=== PATIENT | female | born 1945 | race Caucasian/White ===

== ENCOUNTER 2016-05-31 14:10 | Observation (INO) | payer MEDICARE, OTHER ==
[2016-06-11] MEDS ORDERED: TORAdol 30 mg Injection IV ONE (08:00)
[2016-06-11] MEDS ORDERED: BRIDION 200MG/2ML IV ONE (08:00)
[2016-06-11] MEDS ORDERED: Zemuron 100 MG/10 ML IV ONE (08:00)
[2016-06-11] MEDS ORDERED: Zofran 4 MG/2 ML VIAL IV ONE (08:00)
[2016-06-11] MEDS ORDERED: SUBLIMAZE 100 MCG/2 ML IV ONE (08:00)
[2016-06-11] MEDS ORDERED: Quelicin Fliptop 200 MG/10 ML IV ONE (08:00)
[2016-06-11] MEDS ORDERED: DIPRIVAN 200 MG/20 ML IV ONE (08:00)
[2016-06-11] MEDS ORDERED: Decadron 4 MG INJ IV ONE (08:00)
--- NOTE | 2016-06-11 08:12 | HP ---
DATE OF SURGERY: 06/11/2016 HISTORY OF PRESENT ILLNESS: The patient is a 70 year-old who has a history of ventral hernia mid abdomen. She had cholecystectomy, abdominovaginal sacropexy apparently in the past, total abdominal hysterectomy in the past. She now has ventral hernia and in need of repair. It is increasingly symptomatic. PAST MEDICAL HISTORY: Diabetes. PAST SURGICAL HISTORY: Hysterectomy, abdominovaginal sacropexy, rectocele and bladder repair in the past. Cholecystectomy in the past. MEDICATIONS: Janumet, Actos, Lopid, Reglan, Xanax, aspirin, Neurontin, Lasix, potassium. ALLERGIES: NKDA. FAMILY HISTORY: Diabetes and cancer. SOCIAL HISTORY: No smoking or alcohol abuse. REVIEW OF SYSTEMS: Ten systems reviewed per admission assessment and preadmission questionnaire. No chest pain or palpitations otherwise pertinent for as noted above. PHYSICAL EXAMINATION: GENERAL: No acute distress. HEENT: Sclerae nonicteric. NECK: No JVD. CHEST: Equal excursion, nonlabored breathing. CVS: Regular rate and rhythm. ABDOMEN: Soft, a little bit overweight. She has a mid-abdomen ventral hernia. EXTREMITIES: No significant edema. NEURO: Alert, moving extremities symmetrically. No gross motor deficits noted. IMPRESSION: Incarcerated ventral hernia likely with some preperitoneal or omental fat. Options of open versus laparoscopic were discussed with the patient in detail. Had a long discussion with the patient. Plan on attempting laparoscopic if able to visualize and see the area in question well to proceed safely, will proceed with laparoscopic incarcerated ventral hernia repair with mesh possible open. If there are too many adhesions and not safe to proceed that way then may consider proceeding with open procedure, general risk of bleeding or infection, risk of wound infection or dehiscence, risk of recurrent hernia, risk of aches, pains, burning or numbness possibly senior care or chronic in nature. Risk of adhesion or scar formation or obstruction, risk of postoperative ileus, risk if the mesh became infected likely would need to be removed, general risk of anesthesia, deep venous thrombosis, pulmonary embolism, pneumonia, small risk of bowel injury or issues abdominal injury but not limited to, possibly requiring other procedures, ongoing morbidity. She understands as well as overall risk of hernia recurrence will proceed with laparoscopic possible open incarcerated ventral hernia repair with mesh. She understood all the above but not limited. She understands the remote risk of mesh fracture or failure possibly creating issues with the bowel possibly requiring other procedures but the overall benefit of decreasing hernia recurrence is far greater than remote risk of mesh failure. She understands and agrees to the planned procedure.
[2016-06-11] MEDS ORDERED: Sensorcaine 0.25% 10 ML ONE (09:20)
[2016-06-11] MEDS ORDERED: Lactated Ringers 1,000 ML IV ONE ×2 (09:20→14:42)
[2016-06-11] MEDS ORDERED: CEFAZOLIN 2 GM-D5W BAG** 50 ML IV ONE (11:08)
[2016-06-11] MEDS ORDERED: Pepcid 20 MG VIAL IV ONE (11:08)
[2016-06-11] MEDS ORDERED: Lactated Ringers 1,000 ML IV SCH (11:30)
[2016-06-11] MEDS ORDERED: Zofran 4 MG/2 ML VIAL IV PRN ×2 (12:36→16:36)
--- NOTE | 2016-06-11 13:01 | PCM.NOTE ---
Date and Time: 06/11/16 1301 Subjective Assessment: s/p ventral hernia surgery - Review of Systems Constitutional: No Fever, No Chills Eyes: No Symptoms Ears, Nose, & Throat: No Symptoms Respiratory: No Cough, No Short Of Breath Cardiac: No Chest Pain, No Edema, No Syncope Abdominal/Gastrointestinal: No Abdominal Pain, No Nausea, No Vomiting, No Diarrhea Genitourinary Symptoms: No Dysuria Musculoskeletal: No Back Pain, No Neck Pain Skin: No Rash Neurological: No Dizziness, No Focal Weakness, No Sensory Changes Psychological: No Symptoms Endocrine: No Symptoms Hematologic/Lymphatic: No Symptoms Immunological/Allergic: No Symptoms Objective Exam General Appearance: no apparent distress, alert Neurologic Exam: alert, oriented x 3, cooperative, normal mood/affect, nml cerebellar function, sensation nml, No motor deficits Skin Exam: normal color, warm, dry Eye Exam: PERRL, EOMI, eyes nml inspection Ears, Nose, Throat Exam: normal ENT inspection, pharynx normal, moist mucous membranes Neck Exam: normal inspection, non-tender, supple, full range of motion Respiratory Exam: normal breath sounds, lungs clear, No respiratory distress Cardiovascular Exam: regular rate/rhythm, normal heart sounds Gastrointestinal/Abdomen Exam: soft, No tenderness, No mass Extremity Exam: normal inspection, normal range of motion Back Exam: normal inspection, normal range of motion, No CVA tenderness, No vertebral tenderness Pelvic Exam: deferred Rectal Exam: deferred OBJECTIVE DATA Vital Signs: Vital Signs - 24 hr Temp Pulse Resp BP BP Pulse Ox 06/11/16 11:54 98.0 F 67 16 184/80 100 06/11/16 11:50 98.0 F 67 16 184/80 100 Intake and Output: Intake & Output 06/09/16 06/10/16 06/11/16 06/12/16 11:59 11:59 11:59 11:59 Weight 88.904 kg Lab Results: Accuchecks Date 06/11/16 Time 12:13 Accucheck Value: 147 Assessment/Plan (1) Type 2 diabetes mellitus Current Visit: Yes Status: Acute Qualifiers: Diabetes mellitus complication status: without complication Diabetes mellitus mcc insulin use: without mcc use Qualified Code(s): E11.9 - Type 2 diabetes mellitus without complications
[2016-06-11] MEDS ORDERED: SUBLIMAZE 100 MCG/2 ML ONE (15:19)
[2016-06-11] MEDS ORDERED: DILAUDID 2 MG INJECTION ONE (15:37)
[2016-06-11] MEDS ORDERED: Zofran 4 MG/2 ML VIAL ONE (15:48)
[2016-06-11] MEDS ORDERED: MORPHINE SULFATE 4 MG INJ IV PRN (16:35)
[2016-06-11] MEDS ORDERED: MORPHINE SULFATE 10 MG/ML IV PRN (16:35)
[2016-06-11] MEDS ORDERED: MORPHINE SULFATE 2 MG INJ IV PRN (16:35)
[2016-06-11] MEDS ORDERED: Miralax Powder 17GM PACKET PO PRN (16:37)
[2016-06-11] MEDS: LOPID 600 MG PO SCH (17:46)
[2016-06-11] MEDS: Januvia 50 MG PO SCH (17:46)
[2016-06-11] MEDS: Lasix 40 MG PO SCH (17:46)
[2016-06-11] MEDS: Glucophage 500 MG PO SCH (17:46)
[2016-06-11] MEDS ORDERED: NON-FORMULARY ITEM (Potassium Chloride 20 Meq [Klor-Con 20 Meq] 20 MEQ) PO SCH (22:00)
[2016-06-11] MEDS ORDERED: METFORMIN HCL PO SCH (22:00)
[2016-06-11] MEDS ORDERED: SITAGLIPTIN PHOS PO SCH (22:00)
[2016-06-11] MEDS: NEURONTIN 300 MG PO SCH (22:57)
[2016-06-11] MEDS: Reglan 5 MG PO SCH (22:57)
[2016-06-11] MEDS: xanAX 0.5 MG PO SCH (22:57)
[2016-06-11] MEDS: NORCO 5/325 MG PO PRN (22:58)
[2016-06-11] MEDS: Colace 100 MG PO SCH (23:00)
[2016-06-11] MEDS: Klor Con 10 MEQ PO SCH (23:02)
[2016-06-12] MEDS: Januvia 50 MG PO SCH ×2 (09:11→16:36)
[2016-06-12] MEDS: Glucophage 500 MG PO SCH ×2 (09:11→16:36)
[2016-06-12] MEDS: Reglan 5 MG PO SCH (09:12)
[2016-06-12] MEDS: Lasix 40 MG PO SCH ×2 (09:12→16:36)
[2016-06-12] MEDS: Colace 100 MG PO SCH (09:12)
[2016-06-12] MEDS: xanAX 0.5 MG PO SCH (09:13)
[2016-06-12] MEDS: NEURONTIN 300 MG PO SCH (09:13)
[2016-06-12] MEDS: Klor Con 10 MEQ PO SCH (09:13)
[2016-06-12] MEDS: LOPID 600 MG PO SCH (09:13)
[2016-06-12] MEDS: NORCO 5/325 MG PO PRN ×2 (09:18→16:36)
--- NOTE | 2016-06-12 09:32 | OP ---
SURGERY DATE/TIME: 06/11/2016 1318 PREOPERATIVE DIAGNOSIS: Symptomatic incarcerated ventral hernia. POSTOPERATIVE DIAGNOSIS: Symptomatic incarcerated ventral hernia. PROCEDURE: Laparoscopic assisted repair of incarcerated ventral incisional hernia with mesh. SURGEON: Dr. Amari Interiano. ANESTHESIA: General. ESTIMATED BLOOD LOSS: Minimal. INDICATIONS: As noted above. Risks and benefits explained in detail and not limited to and was consent obtained. DESCRIPTION OF PROCEDURE AND FINDINGS: The patient is taken to the operating room. The site had been confirmed with the patient in the holding area. General anesthesia was induced. Abdomen prepped and draped in usual sterile fashion. After official time out and no disagreement with planned procedure, a transverse incision made through an old scar through the supraumbilical area dissection down through subcutaneous. Towel clamp elevating the abdominal wall upward. Veress needle inserted and tested with saline. Pneumoperitoneum accomplished with opening pressure 0 to 15. Once this was accomplished, 5 mm bladeless port and camera were inserted without difficulty in the right mid abdomen. There was no evidence of any intra-abdominal injury secondary to trocar insertion. Under direct vision with the camera, left lower quadrant 5 mm port and right upper quadrant ports were placed under direct vision of the camera as well another 5 mm port right in the abdomen so three on the left upper mid and lower left quadrants and one right mid abdomen 5 mm ports were used. There was no evidence of any intra-abdominal injury secondary to Veress needle placement of insufflation. The Veress needle is removed. The incarcerated omentum and fat were carefully reduced out of the hernia using LigaSure device on vascular adhesions on the peritoneal hernia sac this was slowly and carefully accomplished freeing this incarcerated omentum reducing it back down. Once this was accomplished defect was marked with a spinal needle to appropriate dimensions to determine the size of the mesh. It was felt either 10 cm lower brule or 11 mm would be most appropriate size as there is no specific mesh of that size. A 10 x 20 mesh was felt to be the best option trimming it to size, 10 x 11 curving the edges of the corners. At this point I felt the most optimal way to reduce overall hernia recurrence would be to go ahead and close the fascial defect. Therefore the skin incision at the old scar is slightly enlarged to more than normal size of the original incision. Dissection carried down and again the hernia had already been reduced with incarcerated content. The fascia is then closed with interrupted 0 PDS closing the true fascial edges. Just prior to completely closing this, the mesh had Ethibond sutures placed in four quadrants and Vicryl placed in the center portion. The mesh was dropped into the abdomen with the sutures on it and then completely closing the true fascial defect with PDS suture. There was a small supraumbilical incision. Once this was accomplished good hemostasis noted. The mesh was then pulled up and the center portion of this true fascial defect with 0 Vicryl on either side of the transected center portion of mesh. Again, the 11 mm side to side appeared that the defect had extended more this direction. Otherwise once this center sutured tied then a couple of tacks were used to tack the far right side of the mesh and then using Positronics suture passer pulling the suture up carefully. The right lateral quadrant suture was secured with Ethibond suture this was followed by using suture passer to the other three quadrants of sutures transfixing healthy bites of fascia. These sutures were removed and then proceeded with tacking around the edges with a ProTacker, using SorbaFix tacker in the side edges closer to the true fascial defect to reduce the risk of seroma formation. It should be noted that the staff did not have another SorbaFix tacker available so did require a couple additional ProTacks nor did they have different PermaTack available. The mesh was as flat as possible. It should be noted in doing all of the suture transfixing and packing that pressure had been reduced down to 8 mm of Mercury to avoid any over distention. The patient tolerated the procedure well. Good hemostasis noted. There had been no evidence of any omental, visceral or any other issues. Pneumoperitoneum decompressed. Port is removed. Skin incision closed with 4-0 Vicryl. The hernia area subcu was packed back down to the level of the fascia. Subcu closed with 3-0 Vicryl. Skin closed with 4-0 Vicryl. Steri-Strips and sterile pressure dressing applied as well as the patient was given abdominal binder. She tolerated the procedure well. There were no immediate complications. Findings were discussed with the family out in the waiting area. Will admit her for observation and pain control and release when her pain control is adequate on oral pain medication.
[2016-06-12] MEDS ORDERED: Actos 30 MG PO SCH (10:00)
--- NOTE | 2016-06-12 11:29 | PCM.NOTE ---
Date and Time: 06/12/161127 Subjective Assessment: doing better - Review of Systems Constitutional: No Fever, No Chills Eyes: No Symptoms Ears, Nose, & Throat: No Symptoms Respiratory: No Cough, No Short Of Breath Cardiac: No Chest Pain, No Edema, No Syncope Abdominal/Gastrointestinal: No Abdominal Pain, No Nausea, No Vomiting, No Diarrhea Genitourinary Symptoms: No Dysuria Musculoskeletal: No Back Pain, No Neck Pain Skin: No Rash Neurological: No Dizziness, No Focal Weakness, No Sensory Changes Psychological: No Symptoms Endocrine: No Symptoms Hematologic/Lymphatic: No Symptoms Immunological/Allergic: No Symptoms Objective Exam General Appearance: no apparent distress, alert Neurologic Exam: alert, oriented x 3, cooperative, normal mood/affect, nml cerebellar function, sensation nml, No motor deficits Skin Exam: normal color, warm, dry Eye Exam: PERRL, EOMI, eyes nml inspection Ears, Nose, Throat Exam: normal ENT inspection, pharynx normal, moist mucous membranes Neck Exam: normal inspection, non-tender, supple, full range of motion Respiratory Exam: normal breath sounds, lungs clear, No respiratory distress Cardiovascular Exam: regular rate/rhythm, normal heart sounds Gastrointestinal/Abdomen Exam: soft, No tenderness, No mass Extremity Exam: normal inspection, normal range of motion Back Exam: normal inspection, normal range of motion, No CVA tenderness, No vertebral tenderness Pelvic Exam: deferred Rectal Exam: deferred OBJECTIVE DATA Vital Signs: Vital Signs - 24 hr Temp Pulse Resp BP BP Pulse Ox 06/12/16 08:08 98.3 F 58 L 18 146/63 100 06/12/16 07:37 72 18 98 06/12/16 04:44 98.8 F 67 116 H 121/57 97 06/12/16 00:13 98.4 F 86 18 107/59 98 06/11/16 19:51 98.0 F 124 H 20 123/66 95 06/11/16 19:47 87 L 06/11/16 17:26 97.7 F 118 H 20 148/86 92 L 06/11/16 16:46 97.9 F 118 H 20 148/81 91 L 06/11/16 16:31 97.7 F 114 H 20 155/117 90 L 06/11/16 16:28 97.7 F 114 H 20 155/117 90 L 06/11/16 11:54 98.0 F 67 16 184/80 100 06/11/16 11:50 98.0 F 67 16 184/80 100 Oxygen-Last 24 hours O2 Percentage 2 Liters = 28% O2 Percentage 2 Liters = 28% O2 Percentage 2 Liters = 28% O2 Percentage 2 Liters = 28% O2 Percentage 2 Liters = 28% O2 Percentage 2 Liters = 28% O2 Percentage 2 Liters = 28% Pain Assessment - Last Documented Pain Intensity 3 Pain Scale Used 0-10 Pain Scale Intake and Output: Intake & Output 06/09/16 06/10/16 06/11/16 06/12/16 11:59 11:59 11:59 11:59 Intake Total 980 Output Total 1600 Balance -620 Weight 88.904 kg 88.904 kg Lab Results: Accuchecks Date 06/11/16 Time 12:13 Accucheck Value: 147 Assessment/Plan (1) Type 2 diabetes mellitus Current Visit: Yes Status: Acute Qualifiers: Diabetes mellitus complication status: without complication Diabetes mellitus detention insulin use: without termination clerk use Qualified Code(s): E11.9 - Type 2 diabetes mellitus without complications
[2016-06-12 17:02] VITALS: BP 136/62; PULSE 69; O2SAT 98
[2016-06-15] MEDS ORDERED: ECOTRIN 81 MG PO SCH (10:00)
--- NOTE | 2016-06-15 17:29 | PCM.DS ---
Discharge Summary Date of Admission: 06/11/16 11:26 Admitting Physician: KM DAWKINS Consults: Consults on Case 06/11/16 16:59 Consult Physician ROUTINE Primary Care Provider: ANTHONY HARMAN Allergies Allergies No Known Drug Allergies Allergy (Verified 06/11/16 11:45) Hospital Summary - Hospital Course Hospital Course: Chief Complaint Diagnosis ventral hernia Allergies Allergy/AdvReac Type Severity Reaction Status Date / Time No Known Drug Allergies Allergy Verified 06/11/16 11:45 Home Medications Medication Instructions Recorded Confirmed Last Taken Type Furosemide 40 mg [Lasix 40 40 mg PO BID 05/31/16 06/11/16 06/10/16 History MG] 40 mg Potassium Chloride 20 Meq 20 meq PO BID 05/31/16 06/11/16 06/10/16 History [Klor-Con 20 MEQ] 20 MEQ Gabapentin [Neurontin] 300 mg PO BID 06/11/16 06/11/16 06/10/16 History 300 mg Hydrocodone Bit/Acetaminophen 1 - 2 each PO Q4HPRN PRN #36 tablet 06/12/16 Unknown Rx [[place] 5-325 Tablet] Current Medications Discontinued Medications Generic Name Dose Route Start Last Admin Trade Name Freq PRN Reason Stop Dose Admin Acetaminophen/Hydrocodone Bitart 1 - 2 tab 06/11/16 16:36 06/12/16 16:36 [place] 5/325 Mg PO 06/16/16 16:35 1 tab Q4H PRN PRN Administration PAIN Alprazolam 0.5 mg 06/11/16 22:00 06/12/16 09:13 Xanax 0.5 Mg PO 07/11/16 21:59 0.5 mg BID DANIEL Administration Aspirin 81 mg 06/15/16 10:00 Ecotrin 81 Mg PO 07/15/16 09:59 DAILY DANIEL Bupivacaine HCl Confirm 06/11/16 09:20 Sensorcaine 0.25% 10 Ml Administered 06/11/16 09:21 Dose 10 ml .ROUTE .STK-MED ONE Dexamethasone Sodium Phosphate 4 mg 06/11/16 08:00 Decadron 4 Mg Inj IV 06/11/16 08:01 .STK-MED ONE Docusate Sodium 100 mg 06/11/16 22:00 06/12/16 09:12 Colace 100 Mg PO 07/11/16 21:59 100 mg BID DANIEL Administration Famotidine 20 mg 06/11/16 11:08 06/11/16 11:42 Pepcid 20 Mg Vial IV 06/11/16 11:09 20 mg 1HRPRIOR ONE Administration Fentanyl Citrate Confirm 06/11/16 15:19 Sublimaze 100 Mcg/2 Ml Administered 06/11/16 15:20 Dose 100 mcg .ROUTE .STK-MED ONE Fentanyl Citrate 100 mcg 06/11/16 08:00 Sublimaze 100 Mcg/2 Ml IV 06/11/16 08:01 .STK-MED ONE Furosemide 40 mg 06/11/16 17:00 06/12/16 16:36 Lasix 40 Mg PO 07/11/16 16:59 40 mg BID DIURETIC DANIEL Administration Gabapentin 300 mg 06/11/16 22:00 06/12/16 09:13 Neurontin 300 Mg PO 07/11/16 21:59 300 mg BID DANIEL Administration Gemfibrozil 600 mg 06/11/16 17:00 06/12/16 09:13 Lopid 600 Mg PO 07/11/16 16:59 600 mg DAILY DANIEL Administration Hydromorphone HCl Confirm 06/11/16 15:37 Dilaudid 2 Mg Injection Administered 06/11/16 15:38 Dose 2 mg .ROUTE .STK-MED ONE Lactated Ringer's Confirm 06/11/16 09:20 Lactated Ringers Administered 06/11/16 09:21 Dose 1,000 mls @ ud IV .STK-MED ONE Cefazolin Sodium/Dextrose 50 mls @ 100 mls/hr 06/11/16 11:08 06/11/16 11:42 Cefazolin 2 Gm-D5w Bag IV 06/11/16 11:37 100 mls/hr STAT ONE Administration Lactated Ringer's 1,000 mls @ 50 mls/hr 06/11/16 11:30 06/11/16 11:42 Lactated Ringers IV 07/11/16 11:29 50 mls/hr .Q20H DANIEL Administration Lactated Ringer's Confirm 06/11/16 14:42 Lactated Ringers Administered 06/11/16 14:43 Dose 1,000 mls @ ud IV .STK-MED ONE Ketorolac Tromethamine 30 mg 06/11/16 08:00 Toradol 30 Mg Injection IV 06/11/16 08:01 .STK-MED ONE Metformin HCl 1,000 mg 06/11/16 17:00 06/12/16 16:36 Glucophage 500 Mg PO 07/11/16 16:59 1,000 mg BIDWM DANIEL Administration Metoclopramide HCl 5 mg 06/11/16 22:00 06/12/16 09:12 Reglan 5 Mg PO 07/11/16 21:59 5 mg BID DANIEL Administration Morphine Sulfate 0 mg 06/11/16 16:35 Morphine Sulfate 2 Mg Inj IV 06/16/16 16:34 Q1H PRN PRN PAIN Morphine Sulfate 0 mg 06/11/16 16:35 Morphine Sulfate 4 Mg Inj IV 06/16/16 16:34 Q1H PRN PRN PAIN Morphine Sulfate 0 mg 06/11/16 16:35 Morphine Sulfate 10 Mg/Ml IV 06/16/16 16:34 Q1H PRN PRN PAIN Ondansetron HCl 4 mg 06/11/16 12:36 06/11/16 12:38 Zofran 4 Mg/2 Ml Vial IV 07/11/16 12:35 4 mg Q4H PRN PRN Administration NAUSEA/VOMITING Ondansetron HCl Confirm 06/11/16 15:48 Zofran 4 Mg/2 Ml Vial Administered 06/11/16 15:49 Dose 4 mg .ROUTE .STK-MED ONE Ondansetron HCl 4 mg 06/11/16 16:36 Zofran 4 Mg/2 Ml Vial IV 07/11/16 16:35 Q6H PRN PRN NAUSEA/VOMITING Ondansetron HCl 4 mg 06/11/16 08:00 Zofran 4 Mg/2 Ml Vial IV 06/11/16 08:01 .STK-MED ONE Pioglitazone HCl 15 mg 06/12/16 10:00 06/12/16 09:12 Actos 30 Mg PO 07/12/16 09:59 15 mg DAILY DANIEL Administration Polyethylene Glycol 17 gm 06/11/16 16:37 Miralax Powder 17gm Packet PO 07/11/16 16:36 QDP PRN CONSTIPATION Potassium Chloride 20 meq 06/11/16 22:00 06/12/16 09:13 Klor Con 10 Meq PO 07/11/16 21:59 20 meq BID DANIEL Administration Propofol 200 mg 06/11/16 08:00 Diprivan 200 Mg/20 Ml IV 06/11/16 08:01 .STK-MED ONE Rocuronium [place] 10 mg 06/11/16 08:00 Zemuron 100 Mg/10 Ml IV 06/11/16 08:01 .STK-MED ONE Sitagliptin Phosphate 50 mg 06/11/16 17:00 06/12/16 16:36 Januvia 50 Mg PO 07/11/16 16:59 50 mg BIDWM DANIEL Administration Succinylcholine Chloride 20 mg 06/11/16 08:00 Quelicin Fliptop 200 Mg/10 Ml IV 06/11/16 08:01 .STK-MED ONE Intake & Output (Last 24 hours) 06/13/16 06/14/16 06/15/16 06/16/16 11:59 11:59 11:59 11:59 Intake Total 860 Balance 860 Orders (Last 24 hours) Category Date Time Status Aspirin EC 81 mg [Ecotrin 81 mg] Med 06/15/16 10:00 Discontinued 81 mg PO DAILY - Vitals & Intake/Output Vital Signs: Vital Signs Temperature 98.2 F 06/12/16 17:00 Pulse Rate 69 06/12/16 17:00 Respiratory Rate 18 06/12/16 17:00 Blood Pressure 136/62 06/12/16 17:00 O2 Sat by Pulse Oximetry 98 06/12/16 17:00 Oxygen-Last Documented O2 Percentage 2 Liters = 28% Intake & Output: Intake & Output 06/13/16 06/14/16 06/15/16 06/16/16 11:59 11:59 11:59 11:59 Intake Total 860 Balance 860 - Procedures and Test Procedures and Tests throughout Hospitalization: Therapy Orders & Screens 06/11/16 22:08 Oxygen NASAL CANNULA 2 lpm Comment: TO KEEP SPO2 >92% PER R.T. PROTOCOL Diagnosis: ventral hernia Discharge Exam General Appearance: no apparent distress, alert Neurologic Exam: alert, oriented x 3, cooperative, normal mood/affect, nml cerebellar function, sensation nml, No motor deficits Skin Exam: normal color, warm, dry Eye Exam: PERRL, EOMI, eyes nml inspection Ears, Nose, Throat Exam: normal ENT inspection, pharynx normal, moist mucous membranes Neck Exam: normal inspection, non-tender, supple, full range of motion Respiratory Exam: normal breath sounds, lungs clear, No respiratory distress Cardiovascular Exam: regular rate/rhythm, normal heart sounds Gastrointestinal/Abdomen Exam: soft, No tenderness, No mass Extremity Exam: normal inspection, normal range of motion Back Exam: normal inspection, normal range of motion, No CVA tenderness, No vertebral tenderness Pelvic Exam: deferred Rectal Exam: deferred Final Diagnosis/Problem List - Final Discharge Diagnosis/Problem (1) Type 2 diabetes mellitus Status: Chronic (2) S/P hernia surgery Status: Resolved - Discharge Discharge Date: 06/14/16 Disposition: Home, Self-Care Condition: Stable Prescriptions: New Hydrocodone Bit/Acetaminophen [[place] 5-325 Tablet] 1 - 2 each PO Q4HPRN PRN # 36 tablet PRN Reason: Pain Continue Metoclopramide HCl 5 mg [Reglan 5 MG] 5 mg PO BID Aspirin [Max Chewable Aspirin] 81 mg PO DAILY Gemfibrozil 600 mg [Lopid 600 mg] 600 mg PO DAILY Sitagliptin Phos/Metformin HCl [Janumet 50-1,000 mg Tablet] 50 mg PO BID Alprazolam [Xanax 0.5 mg] 0.5 mg PO BID Pioglitazone HCl [Actos] 15 mg PO DAILY Furosemide 40 mg [Lasix 40 MG] 40 mg PO BID Potassium Chloride 20 Meq [Klor-Con 20 MEQ] 20 meq PO BID Gabapentin [Neurontin] 300 mg PO BID Instructions: Hernia Repair, Laparoscopy Additional Instructions: Follow up with on 06/25/16@ 9:40a.m. at [facility] Follow up with: JASPREET DAWKINS [COURTESY STAFF] - 06/25/16 9:40 am ANTHONY HARMAN MD [Primary Care Provider] - 1 Week Forms: Discharge Instructions, Patient Portal Information
== END 2016-06-12 18:40 | disposition home or self-care (01) ==
LOC: MED SURG 06-11 11:26
PROVIDERS: ADMIT Surgery; ATTEND Surgery
PROC: 0WUF4JZ Supplement Abdominal Wall with Synthetic Substitute, Percutaneous Endoscopic Approach (ICD-10-PCS; principal; 2016-06-11)
DX: E11.9 Type 2 diabetes mellitus without complications (principal); Z98.890 Other specified postprocedural states; K43.2 Incisional hernia without obstruction or gangrene; Z79.899 Other long term (current) drug therapy
CPT/HCPCS: 82962 ×3; 93268; 94760 ×2; 49655; A9270 ×5; 00832; 99100; G0378; J0330; J0690; J1100; J1170; J1885; J2405; J2704; J3010; L0625

== ENCOUNTER 2017-07-12 19:39 | Inpatient (IN) | payer MEDICARE, OTHER ==
--- NOTE | 2017-07-12 20:19 | ERPHSYRPT ---
- History of Present Illness Time Seen by Provider: 07/12/17 20:15 Source: patient Exam Limitations: no limitations Patient Subjective Stated Complaint: bilat lower leg pain. Triage Nursing Assessment: pt is alert and oriented. pt is ambulatory with the assistance of a walker. pt has bilateral lower leg swelling and redness. dry skin patches noted on right leg. left leg is weeping and has purulant material present. swelling worse in left leg than in right leg. pt has sensation and movement present in both legs and feet. right leg pedal pulse palpitated, left leg pedal pulse found via doppler. cap refil <3 seconds bilat. Physician History: left lower leg pain and ulceration. 71-year-old female with significant past medical history of type 2 diabetes mellitus, started having swelling of the both lower extremity for 3-4 weeks, but in last 1 week she developed ulcer on her left lower extremity associated with purulent discharge, so she came to the emergency room for further evaluation. She denies any fever, chills, nausea or vomiting. Occurred: days ago Lower Extremities Pain: leg: left (ulceration) Allergies/Adverse Reactions: No Known Drug Allergies Allergy (Verified 03/01/17 15:44) Home Medications: ALPRAZolam [Xanax 0.5 mg] 0.5 mg PO BID 04/25/15 [History] Gemfibrozil 600 mg [Lopid 600 mg] 600 mg PO DAILY 04/25/15 [History] Pioglitazone HCl [Actos] 30 mg PO DAILY 04/25/15 [History] Sitagliptin Phos/Metformin HCl [Janumet 50-1,000 mg Tablet] 50 mg PO BID [History] Potassium Chloride 20 Meq [Klor-Con 20 MEQ] 20 meq PO BID 05/31/16 [History] Gabapentin [Neurontin] 400 mg PO TID 06/11/16 [History] Rivaroxaban [Xarelto] 15 mg PO UD 03/01/17 [History] Glimepiride [Glimepiride] 2 mg PO DAILY 07/12/17 [History] Metoprolol Succinate 100 mg [Toprol Xl 100 MG] 100 mg PO DAILY 07/12/17 [ History] Torsemide [Torsemide] 20 mg PO TID 07/12/17 [History] metOLazone [Metolazone] 5 mg PO UD 07/12/17 [History] Hx Tetanus, Diphtheria Vaccination/Date Given: No Hx Influenza Vaccination/Date Given: Yes Hx Pneumococcal Vaccination/Date Given: No Immunizations Up to Date: No - Review of Systems Constitutional: No Fever, No Chills Eyes: No Symptoms Ears, Nose, & Throat: No Symptoms Respiratory: No Cough, No Dyspnea Cardiac: No Chest Pain, No Edema, No Syncope Abdominal/Gastrointestinal: No Abdominal Pain, No Nausea, No Vomiting, No Diarrhea Genitourinary Symptoms: No Dysuria Musculoskeletal: No Back Pain, No Neck Pain Skin: Cellulitis, Induration, No Rash Neurological: No Dizziness, No Focal Weakness, No Sensory Changes Psychological: No Symptoms Endocrine: No Symptoms All Other Systems: Reviewed and Negative - Past Medical History Pertinent Past Medical History: Yes Neurological History: No Pertinent History ENT History: No Pertinent History Cardiac History: Arrhythmia, High Cholesterol, Hypertension Respiratory History: No Pertinent History Endocrine Medical History: Diabetes Type II Musculoskeletal History: No Pertinent History GI Medical History: GERD, Gallbladder Disease, Hernia History: Renal Disease Psycho-Social History: Depression Female Reproductive Disorders: No Pertinent History Other Medical History: A-Fib - Past Surgical History Past Surgical History: Yes Neuro Surgical History: No Pertinent History Cardiac: No Pertinent History Respiratory: No Pertinent History Gastrointestinal: Cholecystectomy Genitourinary: Other Musculoskeletal: No Pertinent History Female Surgical History: Hysterectomy Other Surgical History: RECTOCELE. BLADDER TACT UP. cholecystectomy, has had elevated labs with kidneys, hernia repair - Social History Smoking Status: Never smoker Exposure to second hand smoke: Yes Drug Use: none Patient Lives Alone: No - Female History Hx Now: No - Nursing Vital Signs Nursing Vital Signs: Initial Vital Signs Temperature 98.1 F 07/12/17 19:39 Pulse Rate 81 07/12/17 19:39 Respiratory Rate 16 07/12/17 19:39 Blood Pressure 165/69 07/12/17 19:39 O2 Sat by Pulse Oximetry 100 07/12/17 19:39 Pain Scale Pain Intensity 8 - Physical Exam General Appearance: alert Eyes, Ears, Nose, Throat Exam: moist mucous membranes Neck Exam: non-tender, supple Cardiovascular/Respiratory Exam: chest non-tender, normal breath sounds, regular rate/rhythm, no respiratory distress Gastrointestinal/Abdominal Exam: non-tender, guarding Back Exam: normal inspection, No vertebral tenderness Legs Exam: left leg: pain, soft tissue tenderness, swelling Neuro/Tendon Exam: normal sensation, normal motor functions Mental Status Exam: alert, oriented x 3, cooperative Skin Exam: normal color, warm, dry SpO2: 100 Oxygen Delivery: Room Air - Course Nursing assessment & vital signs reviewed: Yes - Progress Progress: unchanged Discussed with : Megan Counseled pt/family regarding: diagnosis, need for follow-up - Departure Time of Disposition: 20:18 Departure Disposition: Observation Clinical Impression: Cellulitis and abscess of leg, except foot, Cellulitis of left anterior lower leg Condition: Stable Critical Care Time: No Referrals: ANTHONY HARMAN MD [Primary Care Provider] -
[2017-07-12] MEDS ORDERED: NovoLIN R SQ PRN ×2 (20:43)
[2017-07-12 21:07] LABS: BASOPHIL % 0.3 % (0.0-0.4); Basophil (Absolute #) 0.02 (0-0.4); Eosinophil % 2.1 % (0.00-5.0); Eosinophil (Absolute #) 0.14 (0-0.5); Granulocyte Absolute (ANC) 4.65 (1.4-6.9); Granulocytes % 70.2 % (36.0-66.0); Hemoglobin 9.2 gm/dl (12.0-16.0); Lymphocyte (Absolute #) 1.17 (1.0-4.6); Lymphocytes % 17.7 % (24.0-44.0); Mean Cell Volume 99.7 fl (78-100); Mean Corpuscular Hemoglobin 31.6 pg (26-32); Mean Corpuscular Hgb Concent. 31.7 g/dl (32-36); Mean Platelet Volume 10.2 fl (6-9.5); Monocyte (Absolute #) 0.64 (0.0-1.3); Monocytes % 9.7 % (0.0-12.0); Platelet Count 284 K/mm3 (150-450); Red Blood Count 2.91 M/mm3 (4.1-5.4); Red Cell Distribution Width 14.2 % (11.5-14.0); White Blood Count 6.6 K/mm3 (4.0-10.5)
[2017-07-12 21:51] LABS: ALBUMIN 4.2 g/dL (3.5-5.0); ANION GAP 17.4 MEQ/L (5-15); BILIRUBIN,TOTAL 0.4 mg/dL (0.2-1.3); Calcium 9.2 mg/dL (8.4-10.2); Creatinine 1 1.81 mg/dL (0.52-1.04); Potassium 4.5 mmol/L (3.5-5.1); Total Protein 7.8 g/dL (6.3-8.2)
[2017-07-12] MEDS: Sodium Chloride 0.9% W/ 20 mEq KCl/LITER 1,000 ML IV SCH (22:20)
[2017-07-13] MEDS: Zosyn 3.375GM/100 Ml D5W 3.375 GM/100 ML IVPB IV SCH ×4 (00:57→17:04)
--- NOTE | 2017-07-13 08:00 | PCM.HP ---
History of Present Illness - Chief Complaint Chief Complaint: swelling and ulcer of left lower leg for 1 week History of Present Illness: is a 71 year old female.started having swelling and ulcer of left leg foe 1-2 weeks - Review of Systems Constitutional: No Fever, No Chills Eyes: No Symptoms Ears, Nose, & Throat: No Symptoms Respiratory: No Cough, No Short Of Breath Cardiac: No Chest Pain, No Edema, No Syncope Abdominal/Gastrointestinal: No Abdominal Pain, No Nausea, No Vomiting, No Diarrhea Genitourinary Symptoms: No Dysuria Musculoskeletal: No Back Pain, No Neck Pain Skin: Cellulitis, Induration, No Rash Neurological: No Dizziness, No Focal Weakness, No Sensory Changes Psychological: No Symptoms Endocrine: No Symptoms Hematologic/Lymphatic: No Symptoms Immunological/Allergic: No Symptoms Medications & Allergies Home Medications: Home Medication List ALPRAZolam [Xanax 0.5 mg] 0.5 mg PO BID 04/25/15 [History Confirmed 07/12/17] Gemfibrozil 600 mg [Lopid 600 mg] 600 mg PO DAILY 04/25/15 [History Confirmed 07/12/17] Pioglitazone HCl [Actos] 30 mg PO DAILY 04/25/15 [History Confirmed 07/12/17] Potassium Chloride 20 Meq [Klor-Con 20 MEQ] 40 meq PO QID 05/31/16 [History Confirmed 07/12/17] Gabapentin [Neurontin] 400 mg PO TID 06/11/16 [History Confirmed 07/12/17] Rivaroxaban [Xarelto] 15 mg PO DAILY 03/01/17 [History Confirmed 07/12/17] Acetaminophen with Codeine [Acetaminophen-Cod #3 Tablet] 1 each PO TID PRN 07/12 [History Confirmed 07/12/17] Cinacalcet HCl [Sensipar] 30 mg PO DAILY 07/12/17 [History Confirmed 07/13/17] Dicyclomine HCl 20 mg [Bentyl 20 mg] 10 mg PO QID 07/12/17 [History Confirmed 07/12/17] Glimepiride [Glimepiride] 2 mg PO DAILY 07/12/17 [History Confirmed 07/12/17] Iron Ps Complex/B12/Folic Acid [Poly-Iron 150 Forte Capsule] 150 mg PO DAILY [History Confirmed 07/12/17] Metoprolol Succinate 100 mg [Toprol Xl 100 MG] 100 mg PO DAILY 07/12/17 [ History Confirmed 07/12/17] Torsemide [Torsemide] 20 mg PO TID 07/12/17 [History Confirmed 07/12/17] metOLazone [Metolazone] 5 mg PO UD 07/12/17 [History Confirmed 07/12/17] Silver Sulfadiazine [Ssd] 1 gm TOP BID 07/13/17 [History Confirmed 07/13/17] cephALEXin [Cephalexin] 500 mg PO Q6H 07/13/17 [History Confirmed 07/13/17] Allergies/Adverse Reactions: Allergies Allergy/AdvReac Type Severity Reaction Status Date / Time No Known Drug Allergies Allergy Verified 03/01/17 15:44 - Past Medical History Past Medical History: Yes Neurological History: No Pertinent History ENT History: No Pertinent History Cardiac History: Arrhythmia, High Cholesterol, Hypertension Respiratory History: No Pertinent History Endocrine Medical History: Diabetes Type II Musculoskelatal History: No Pertinent History GI Medical History: GERD, Gallbladder Disease, Hernia History: Renal Disease Pyscho-Social History: Depression Reproductive Disorders: No Pertinent History Comment: A-Fib - Female History Are you now?: No - Past Surgical History Past Surgical History: Yes Neuro Surgical History: No Pertinent History Cardiac History: No Pertinent History Respiratory Surgery: No Pertinent History GI Surgical History: Cholecystectomy, Hernia Repair Genitourinary Surgical Hx: Other Musculskeletal Surgical Hx: No Pertinent History Female Surgical History: Hysterectomy Other Surgical History: RECTOCELE. BLADDER TACT UP. cholecystectomy, has had elevated labs with kidneys, hernia repair - Social History Smoking Status: Never smoker Exposure to second hand smoke: Yes Alcohol: None Drug Use: none - Physical Exam Vital Signs: Vital Signs - 24 hr Temp Pulse Resp BP Pulse Ox 07/13/17 07:25 98.3 F 71 16 135/63 97 07/13/17 04:00 98.3 F 72 18 135/63 95 07/13/17 00:00 97.9 F 71 20 143/61 97 07/12/17 22:25 98.4 F 81 18 147/69 97 07/12/17 20:19 100 07/12/17 19:39 98.1 F 81 16 165/69 100 General Appearance: no apparent distress, alert Neurologic Exam: alert, oriented x 3, cooperative, normal mood/affect, nml cerebellar function, nml station & gait, sensation nml, No motor deficits Eye Exam: PERRL/EOMI, eyes nml inspection Ears, Nose, Throat Exam: normal ENT inspection, TMs normal, pharynx normal, moist mucous membranes Neck Exam: normal inspection, non-tender, supple, full range of motion Respiratory Exam: normal breath sounds, lungs clear, No respiratory distress Cardiovascular Exam: regular rate/rhythm, normal heart sounds, normal peripheral pulses Gastrointestinal/Abdomen Exam: soft, normal bowel sounds, No tenderness, No mass Back Exam: normal inspection, normal range of motion, No CVA tenderness, No vertebral tenderness Extremity Exam: normal inspection, normal range of motion, pelvis stable Skin Exam: dry, other (ulcerated lesions on her left leg), No rash Lymphatic Exam: No adenopathy Results - Labs Lab/Micro Results: Lab Results-Last 24 Hours 07/12/17 07/12/17 07/12/17 Range/Units 20:57 21:00 21:00 WBC 6.6 (4.0-10.5) K/mm3 RBC 2.91 L (4.1-5.4) M/mm3 Hgb 9.2 L (12.0-16.0) gm/dl Hct 29.0 L (35-47) % MCV 99.7 (78-100) fl MCH 31.6 (26-32) pg MCHC 31.7 L (32-36) g/dl RDW 14.2 H (11.5-14.0) % Plt Count 284 (150-450) K/mm3 MPV 10.2 H (6-9.5) fl Gran % 70.2 H (36.0-66.0) % Eos # (Auto) 0.14 (0-0.5) Absolute Lymphs (auto) 1.17 (1.0-4.6) Absolute Monos (auto) 0.64 (0.0-1.3) Lymphocytes % 17.7 L (24.0-44.0) % Monocytes % 9.7 (0.0-12.0) % Eosinophils % 2.1 (0.00-5.0) % Basophils % 0.3 (0.0-0.4) % Absolute Granulocytes 4.65 (1.4-6.9) Basophils # 0.02 (0-0.4) Sodium 142 (137-145) mmol/L Potassium 4.5 (3.5-5.1) mmol/L Chloride 92 L (98-107) mmol/L Carbon Dioxide 37 H (22-30) mmol/L Anion Gap 17.4 H (5-15) MEQ/L BUN 51 H (7-17) mg/dL Creatinine 1.81 H (0.52-1.04) mg/dL Estimated GFR 29.1 ML/MIN Glucose 117 H (74-106) mg/dL Lactic Acid 1.2 (0.4-2.0) Calcium 9.2 (8.4-10.2) mg/dL Total Bilirubin 0.40 (0.2-1.3) mg/dL AST 22 (14-36) U/L ALT 11 (0-35) U/L Alkaline Phosphatase 110 (38-126) U/L Serum Total Protein 7.8 (6.3-8.2) g/dL Albumin 4.2 (3.5-5.0) g/dL Assessment/Plan (1) Cellulitis and abscess of leg, except foot Current Visit: Yes Status: Acute Code(s): L03.119 - CELLULITIS OF UNSPECIFIED PART OF LIMB; L02.419 - CUTANEOUS ABSCESS OF LIMB, UNSPECIFIED (2) Cellulitis of left anterior lower leg Current Visit: Yes Status: Acute Code(s): L03.116 - CELLULITIS OF LEFT LOWER LIMB (3) Type 2 diabetes mellitus Current Visit: Yes Status: Chronic Qualifiers:
[2017-07-13] MEDS ORDERED: MEDICATION INTERVENTION MC SCH ×2 (09:00)
[2017-07-13] MEDS: Sodium Chloride 0.9% W/ 20 mEq KCl/LITER 1,000 ML IV SCH (09:34)
[2017-07-13] MEDS: Amaryl 2 MG PO SCH (09:35)
[2017-07-13] MEDS: Actos 30 MG PO SCH (09:35)
[2017-07-13] MEDS: BENTYL 20 MG PO SCH ×4 (09:35→22:38)
[2017-07-13] MEDS: xanAX 0.5 MG PO SCH ×2 (09:36→22:39)
[2017-07-13] MEDS: Klor Con 10 MEQ PO SCH ×4 (09:36→22:38)
[2017-07-13] MEDS: FERREX 150 PO SCH (09:36)
[2017-07-13] MEDS: Neurontin 400 MG PO SCH ×3 (09:36→22:37)
[2017-07-13] MEDS: DEMADEX 20 MG PO SCH ×3 (09:37→17:03)
[2017-07-13] MEDS: FOLTX (FOLBIC) PO SCH (09:37)
[2017-07-13] MEDS: Toprol Xl 100 MG PO SCH (09:37)
[2017-07-13] MEDS: SILVADENE 50 GM TP SCH ×2 (09:38→22:39)
[2017-07-13] MEDS: LOPID 600 MG PO SCH (09:38)
[2017-07-13] MEDS ORDERED: FOLIC ACID PO SCH (10:00)
[2017-07-13] MEDS ORDERED: NON-FORMULARY ITEM (Rivaroxaban [Xarelto] 15 MG) PO SCH (10:00)
[2017-07-13] MEDS ORDERED: NEURONTIN 300 MG PO SCH (10:00)
[2017-07-13] MEDS ORDERED: [UNRECOGNIZED DRUG - OTHER] PO SCH (10:00)
[2017-07-13] MEDS ORDERED: SILVADENE 50 GM TP SCH (10:00)
[2017-07-13] MEDS ORDERED: NON-FORMULARY ITEM (Potassium Chloride 20 Meq [Klor-Con 20 Meq] 40 MEQ) PO SCH (10:00)
[2017-07-13] MEDS ORDERED: PIOGLITAZONE HCL 30 MG PO SCH (10:00)
[2017-07-13] MEDS ORDERED: CINACALCET HCL 30 MG PO SCH (10:00)
[2017-07-13] MEDS ORDERED: IRON PS COMPLEX PO SCH (10:00)
[2017-07-13] MEDS ORDERED: B12 PO SCH (10:00)
[2017-07-13] MEDS: Tylenol #3 Tablet PO PRN ×2 (11:59→22:37)
[2017-07-13] MEDS: XARELTO 10 MG TABLET PO SCH (16:59)
[2017-07-14] MEDS: Zosyn 3.375GM/100 Ml D5W 3.375 GM/100 ML IVPB IV SCH ×5 (00:17→23:06)
[2017-07-14] MEDS: Amaryl 2 MG PO SCH (08:07)
[2017-07-14] MEDS: xanAX 0.5 MG PO SCH ×2 (10:22→21:32)
[2017-07-14] MEDS: BENTYL 20 MG PO SCH ×4 (10:22→21:30)
[2017-07-14] MEDS: Klor Con 10 MEQ PO SCH ×4 (10:22→21:30)
[2017-07-14] MEDS: Actos 30 MG PO SCH (10:24)
[2017-07-14] MEDS: Toprol Xl 100 MG PO SCH (10:24)
[2017-07-14] MEDS: Zaroxolyn 2.5 MG PO SCH (10:24)
[2017-07-14] MEDS: DEMADEX 20 MG PO SCH ×3 (10:25→17:02)
[2017-07-14] MEDS: Neurontin 400 MG PO SCH ×3 (10:25→21:30)
[2017-07-14] MEDS: FERREX 150 PO SCH (10:25)
[2017-07-14] MEDS: FOLTX (FOLBIC) PO SCH (10:26)
[2017-07-14] MEDS: LOPID 600 MG PO SCH (10:26)
[2017-07-14] MEDS: SILVADENE 50 GM TP SCH ×2 (10:27→21:35)
[2017-07-14 11:59] LABS: BASOPHIL % 0.3 % (0.0-0.4); Basophil (Absolute #) 0.02 (0-0.4); Eosinophil % 1.5 % (0.00-5.0); Eosinophil (Absolute #) 0.09 (0-0.5); Granulocyte Absolute (ANC) 4.59 (1.4-6.9); Granulocytes % 75.1 % (36.0-66.0); Hemoglobin 8.7 gm/dl (12.0-16.0); Lymphocyte (Absolute #) 0.89 (1.0-4.6); Lymphocytes % 14.6 % (24.0-44.0); Mean Cell Volume 101.1 fl (78-100); Mean Corpuscular Hemoglobin 31.4 pg (26-32); Mean Corpuscular Hgb Concent. 31.1 g/dl (32-36); Mean Platelet Volume 10.1 fl (6-9.5); Monocyte (Absolute #) 0.52 (0.0-1.3); Monocytes % 8.5 % (0.0-12.0); Platelet Count 269 K/mm3 (150-450); Red Blood Count 2.77 M/mm3 (4.1-5.4); Red Cell Distribution Width 14.2 % (11.5-14.0); White Blood Count 6.1 K/mm3 (4.0-10.5)
[2017-07-14 12:15] LABS: ALBUMIN 3.9 g/dL (3.5-5.0); ANION GAP 13.1 MEQ/L (5-15); BILIRUBIN,TOTAL 0.4 mg/dL (0.2-1.3); Calcium 9.4 mg/dL (8.4-10.2); Creatinine 1 1.61 mg/dL (0.52-1.04); Potassium 4.6 mmol/L (3.5-5.1); Total Protein 7.5 g/dL (6.3-8.2)
[2017-07-14] MEDS: Tylenol #3 Tablet PO PRN (13:59)
[2017-07-14] MEDS: XARELTO 10 MG TABLET PO SCH (18:01)
--- NOTE | 2017-07-14 20:31 | PCM.NOTE ---
Date and Time: 07/14/172028 Subjective Assessment: doing better - Review of Systems Constitutional: No Fever, No Chills Eyes: No Symptoms Ears, Nose, & Throat: No Symptoms Respiratory: No Cough, No Short Of Breath Cardiac: No Chest Pain, No Edema, No Syncope Abdominal/Gastrointestinal: No Abdominal Pain, No Nausea, No Vomiting, No Diarrhea Genitourinary Symptoms: No Dysuria Musculoskeletal: No Back Pain, No Neck Pain Skin: Cellulitis, No Rash Neurological: No Dizziness, No Focal Weakness, No Sensory Changes Psychological: No Symptoms Endocrine: No Symptoms Hematologic/Lymphatic: No Symptoms Immunological/Allergic: No Symptoms Objective Exam General Appearance: no apparent distress, alert Neurologic Exam: alert, oriented x 3, cooperative, normal mood/affect, nml cerebellar function, sensation nml, No motor deficits Skin Exam: normal color, warm, dry Eye Exam: PERRL, EOMI, eyes nml inspection Ears, Nose, Throat Exam: normal ENT inspection, pharynx normal, moist mucous membranes Neck Exam: normal inspection, non-tender, supple, full range of motion Respiratory Exam: normal breath sounds, lungs clear, No respiratory distress Cardiovascular Exam: regular rate/rhythm, normal heart sounds Gastrointestinal/Abdomen Exam: soft, No tenderness, No mass Extremity Exam: normal inspection, normal range of motion, swelling Back Exam: normal inspection, normal range of motion, No CVA tenderness, No vertebral tenderness Pelvic Exam: deferred Rectal Exam: deferred OBJECTIVE DATA Vital Signs: Vital Signs - 24 hr Temp Pulse Resp BP Pulse Ox 07/14/17 19:49 98.3 F 72 20 117/57 98 07/14/17 16:00 98.5 F 53 L 16 113/57 100 07/14/17 11:05 97.6 F 73 16 148/66 99 07/14/17 07:26 97.7 F 66 16 129/61 98 07/14/17 04:00 98.2 F 69 20 143/67 96 07/14/17 00:00 98.2 F 74 17 132/61 98 Pain Assessment - Last Documented Pain Intensity 8 Pain Scale Used 0-10 Pain Scale Intake and Output: Intake & Output 07/12/17 07/13/17 07/14/17 07/15/17 11:59 11:59 11:59 11:59 Intake Total 620 1405 Output Total 1900 Balance 620 -495 Lab Results: Accuchecks Date 07/14/17 Time 07:30 Accucheck Value: 152 Accucheck Value: 139 Accucheck Value: 66 Lab Results-Last 24 Hours 07/14/17 07/14/17 Range/Units 11:48 11:48 WBC 6.1 (4.0-10.5) K/mm3 RBC 2.77 L (4.1-5.4) M/mm3 Hgb 8.7 L (12.0-16.0) gm/dl Hct 28.0 L (35-47) % MCV 101.1 H (78-100) fl MCH 31.4 (26-32) pg MCHC 31.1 L (32-36) g/dl RDW 14.2 H (11.5-14.0) % Plt Count 269 (150-450) K/mm3 MPV 10.1 H (6-9.5) fl Gran % 75.1 H (36.0-66.0) % Eos # (Auto) 0.09 (0-0.5) Absolute Lymphs (auto) 0.89 L (1.0-4.6) Absolute Monos (auto) 0.52 (0.0-1.3) Lymphocytes % 14.6 L (24.0-44.0) % Monocytes % 8.5 (0.0-12.0) % Eosinophils % 1.5 (0.00-5.0) % Basophils % 0.3 (0.0-0.4) % Absolute Granulocytes 4.59 (1.4-6.9) Basophils # 0.02 (0-0.4) Sodium 143 (137-145) mmol/L Potassium 4.6 (3.5-5.1) mmol/L Chloride 102 (98-107) mmol/L Carbon Dioxide 32 H (22-30) mmol/L Anion Gap 13.1 (5-15) MEQ/L BUN 38 H (7-17) mg/dL Creatinine 1.61 H (0.52-1.04) mg/dL Estimated GFR 33.3 ML/MIN Glucose 157 H (74-106) mg/dL Calcium 9.4 (8.4-10.2) mg/dL Total Bilirubin 0.40 (0.2-1.3) mg/dL AST 21 (14-36) U/L ALT 10 (0-35) U/L Alkaline Phosphatase 92 (38-126) U/L Serum Total Protein 7.5 (6.3-8.2) g/dL Albumin 3.9 (3.5-5.0) g/dL Assessment/Plan (1) Cellulitis and abscess of leg, except foot Current Visit: Yes Status: Acute Assessment & Plan: Last Vital Signs Temp 98.3 F 07/14/17 19:49 Pulse 72 07/14/17 19:49 Resp 20 07/14/17 19:49 BP 117/57 07/14/17 19:49 Pulse Ox 98 07/14/17 19:49 Allergies No Known Drug Allergies Allergy (Verified 03/01/17 15:44) Active Medications Acetaminophen/Codeine Phosphate (Tylenol #3 Tablet) 1 tab PO TID PRN PRN PRN Reason: PAIN Stop: 08/12/17 08:10 Last Admin: 07/14/17 13:59 Dose: 1 tab Alprazolam (Xanax 0.5 Mg) 0.5 mg PO BID ON LICENSE OF [facility] Stop: 08/12/17 09:59 Last Admin: 07/14/17 10:22 Dose: 0.5 mg Dicyclomine HCl (Bentyl 20 Mg) 10 mg PO QID ON LICENSE OF [facility] Stop: 08/12/17 09:59 Last Admin: 07/14/17 17:01 Dose: 10 mg Folic Acid (Foltx (Folbic)) 1 tab PO DAILY DANIEL Stop: 08/12/17 09:59 Last Admin: 07/14/17 10:26 Dose: 1 tab Gabapentin (Neurontin 400 Mg) 400 mg PO TID ON LICENSE OF [facility] Stop: 08/12/17 09:59 Last Admin: 07/14/17 15:34 Dose: 400 mg Gemfibrozil (Lopid 600 Mg) 600 mg PO DAILY ON LICENSE OF [facility] Stop: 08/12/17 09:59 Last Admin: 07/14/17 10:26 Dose: 600 mg Glimepiride (Amaryl 2 Mg) 2 mg PO DAILY@0800 DANIEL Stop: 08/12/17 07:59 Last Admin: 07/14/17 08:07 Dose: 2 mg Piperacillin Sod/Tazobactam Sod (Zosyn 3.375gm/100 Ml D5w) 3.375 gm in 100 mls @ 200 mls/hr IV Q6HT DANIEL Stop: 08/12/17 00:00 Last Admin: 07/14/17 18:00 Dose: 200 mls/hr Insulin Human Regular (Novolin R) 0 unit SQ UD PRN PRN Reason: HYPERGLYCEMIA Stop: 08/11/17 20:42 Metolazone (Zaroxolyn 2.5 Mg) 5 mg PO QOD DANIEL Stop: 08/13/17 09:59 Last Admin: 07/14/17 10:24 Dose: 5 mg Metoprolol Succinate (Toprol Xl 100 Mg) 100 mg PO DAILY DANIEL Stop: 08/12/17 09:59 Last Admin: 07/14/17 10:24 Dose: 100 mg Pioglitazone HCl (Actos 30 Mg) 30 mg PO DAILY DANIEL Stop: 08/12/17 09:59 Last Admin: 07/14/17 10:24 Dose: 30 mg Polysaccharide Iron Complex (Ferrex 150) 150 mg PO DAILY DANIEL Stop: 08/12/17 09:59 Last Admin: 07/14/17 10:25 Dose: 150 mg Potassium Chloride (Klor Con 10 Meq) 40 meq PO QID DANIEL Stop: 08/12/17 09:59 Last Admin: 07/14/17 17:01 Dose: 40 meq Silver Sulfadiazine (Silvadene 50 Gm) 0 gm TP BID DANIEL Stop: 08/12/17 09:59 Last Admin: 07/14/17 10:27 Dose: 1 gm Torsemide (Demadex 20 Mg) 20 mg PO TID DIURETIC DANIEL Stop: 08/12/17 09:59 Last Admin: 07/14/17 17:02 Dose: 20 mg Intake & Output 07/14/17 07/15/17 11:59 11:59 Intake Total 4434 1405 Output Total 4997 1900 Balance 2584 -495 Orders 07/14/17 07:00 Full admit [Change to Full Admit] ROUTINE 07/14/17 10:00 Metolazone 2.5 mg [Zaroxolyn 2.5 MG] 5 mg PO QOD 07/14/17 11:00 CULTURE,WOUND Routine Lab Tests 07/14/17 07/14/17 11:48 11:48 WBC 6.1 RBC 2.77 L Hgb 8.7 L Hct 28.0 L MCV 101.1 H MCH 31.4 MCHC 31.1 L RDW 14.2 H Plt Count 269 MPV 10.1 H Gran % 75.1 H Eos # (Auto) 0.09 Absolute Lymphs (auto) 0.89 L Absolute Monos (auto) 0.52 Lymphocytes % 14.6 L Monocytes % 8.5 Eosinophils % 1.5 Basophils % 0.3 Absolute Granulocytes 4.59 Basophils # 0.02 Sodium 143 Potassium 4.6 Chloride 102 Carbon Dioxide 32 H Anion Gap 13.1 BUN 38 H Creatinine 1.61 H Estimated GFR 33.3 Glucose 157 H Calcium 9.4 Total Bilirubin 0.40 AST 21 ALT 10 Alkaline Phosphatase 92 Serum Total Protein 7.5 Albumin 3.9 Code(s): L03.119 - CELLULITIS OF UNSPECIFIED PART OF LIMB; L02.419 - CUTANEOUS ABSCESS OF LIMB, UNSPECIFIED (2) Cellulitis of left anterior lower leg Current Visit: Yes Status: Acute Assessment & Plan: Chief Complaint Diagnosis abcess/cellulitis of left lower extremity Allergies Allergy/AdvReac Type Severity Reaction Status Date / Time No Known Drug Allergies Allergy Verified 03/01/17 15:44 Vital Signs (Last 24 hours) Temp Pulse Resp BP Pulse Ox 07/14/17 19:49 98.3 F 72 20 117/57 98 07/14/17 16:00 98.5 F 53 L 16 113/57 100 07/14/17 11:05 97.6 F 73 16 148/66 99 07/14/17 07:26 97.7 F 66 16 129/61 98 07/14/17 04:00 98.2 F 69 20 143/67 96 07/14/17 00:00 98.2 F 74 17 132/61 98 Home Medications Medication Instructions Recorded Confirmed Last Taken Type Acetaminophen with Codeine 1 each PO TID PRN 07/12/17 07/12/17 Unknown History [Acetaminophen-Cod #3 Tablet] Cinacalcet HCl [Sensipar] 30 mg PO DAILY 07/12/17 07/13/17 Unknown History Dicyclomine HCl 20 mg [Bentyl 10 mg PO QID 07/12/17 07/12/17 Unknown History 20 mg] Glimepiride [Glimepiride] 2 mg PO DAILY 07/12/17 07/12/17 Unknown History Iron Ps Complex/B12/Folic Acid 150 mg PO DAILY 07/12/17 07/12/17 Unknown History [Poly-Iron 150 Forte Capsule] Metoprolol Succinate 100 mg 100 mg PO DAILY 07/12/17 07/12/17 Unknown History [Toprol Xl 100 MG] Torsemide [Torsemide] 20 mg PO TID 07/12/17 07/12/17 Unknown History metOLazone [Metolazone] 5 mg PO UD 07/12/17 07/12/17 Unknown History Silver Sulfadiazine [Ssd] 1 gm TOP BID 07/13/17 07/13/17 Unknown History cephALEXin [Cephalexin] 500 mg PO Q6H 07/13/17 07/13/17 07/12/17 09:00 History Current Medications Generic Name Dose Route Start Last Admin Trade Name Freq PRN Reason Stop Dose Admin Acetaminophen/Codeine Phosphate 1 tab 07/13/17 08:11 07/14/17 13:59 Tylenol #3 Tablet PO 08/12/17 08:10 1 tab TID PRN PRN Administration PAIN Alprazolam 0.5 mg 07/13/17 10:00 07/14/17 10:22 Xanax 0.5 Mg PO 08/12/17 09:59 0.5 mg BID DANIEL Administration Dicyclomine HCl 10 mg 07/13/17 10:00 07/14/17 17:01 Bentyl 20 Mg PO 08/12/17 09:59 10 mg QID DANIEL Administration Folic Acid 1 tab 07/13/17 10:00 07/14/17 10:26 Foltx (Folbic) PO 08/12/17 09:59 1 tab DAILY DANIEL Administration Gabapentin 400 mg 07/13/17 10:00 07/14/17 15:34 Neurontin 400 Mg PO 08/12/17 09:59 400 mg TID DANIEL Administration Gemfibrozil 600 mg 07/13/17 10:00 07/14/17 10:26 Lopid 600 Mg PO 08/12/17 09:59 600 mg DAILY DANIEL Administration Glimepiride 2 mg 07/13/17 08:00 07/14/17 08:07 Amaryl 2 Mg PO 08/12/17 07:59 2 mg DAILY@0800 DANIEL Administration Piperacillin Sod/Tazobactam Sod 3.375 gm in 100 mls @ 200 mls/hr 07/13/17 00: 00 07/14/17 18:00 Zosyn 3.375gm/100 Ml D5w IV 08/12/17 00:00 200 mls/hr Q6HT DANIEL Administration Insulin Human Regular 0 unit 07/12/17 20:43 Novolin R SQ 08/11/17 20:42 UD PRN HYPERGLYCEMIA Metolazone 5 mg 07/14/17 10:00 07/14/17 10:24 Zaroxolyn 2.5 Mg PO 08/13/17 09:59 5 mg QOD DANIEL Administration Metoprolol Succinate 100 mg 07/13/17 10:00 07/14/17 10:24 Toprol Xl 100 Mg PO 08/12/17 09:59 100 mg DAILY DANIEL Administration Pioglitazone HCl 30 mg 07/13/17 10:00 07/14/17 10:24 Actos 30 Mg PO 08/12/17 09:59 30 mg DAILY DANIEL Administration Polysaccharide Iron Complex 150 mg 07/13/17 10:00 07/14/17 10:25 Ferrex 150 PO 08/12/17 09:59 150 mg DAILY DANIEL Administration Potassium Chloride 40 meq 07/13/17 10:00 07/14/17 17:01 Klor Con 10 Meq PO 08/12/17 09:59 40 meq QID DANIEL Administration Silver Sulfadiazine 0 gm 07/13/17 10:00 07/14/17 10:27 Silvadene 50 Gm TP 08/12/17 09:59 1 gm BID DANIEL Administration Torsemide 20 mg 07/13/17 10:00 07/14/17 17:02 Demadex 20 Mg PO 08/12/17 09:59 20 mg TID DIURETIC DANIEL Administration Discontinued Medications Generic Name Dose Route Start Last Admin Trade Name Freq PRN Reason Stop Dose Admin Potassium Chloride/Sodium Chloride 1,000 mls @ 100 mls/hr 07/12/17 20:43 09:34 Sodium Chloride 0.9% W/ 20 Meq Kcl/Liter IV 08/11/17 20:42 100 mls/hr .Q10H DANIEL Administration Intake & Output (Last 24 hours) 07/12/17 07/13/17 07/14/17 07/15/17 11:59 11:59 11:59 11:59 Intake Total 1247 4434 1405 Output Total 400 1850 1900 Balance 847 2584 -495 Weight 102.4 kg Microbiology Results (Last 24 hours) 07/14/17 11:00 Leg - Left Lower Wound Culture - Pending Laboratory Results (Last 24 hours) 07/14/17 07/14/17 11:48 11:48 WBC 6.1 RBC 2.77 L Hgb 8.7 L Hct 28.0 L MCV 101.1 H MCH 31.4 MCHC 31.1 L RDW 14.2 H Plt Count 269 MPV 10.1 H Gran % 75.1 H Eos # (Auto) 0.09 Absolute Lymphs (auto) 0.89 L Absolute Monos (auto) 0.52 Lymphocytes % 14.6 L Monocytes % 8.5 Eosinophils % 1.5 Basophils % 0.3 Absolute Granulocytes 4.59 Basophils # 0.02 Sodium 143 Potassium 4.6 Chloride 102 Carbon Dioxide 32 H Anion Gap 13.1 BUN 38 H Creatinine 1.61 H Estimated GFR 33.3 Glucose 157 H Calcium 9.4 Total Bilirubin 0.40 AST 21 ALT 10 Alkaline Phosphatase 92 Serum Total Protein 7.5 Albumin 3.9 Orders (Last 24 hours) Category Date Time Status Full admit [Change to Full Admit] ROUTINE Care 07/14/17 07:00 Active CBC W DIFF Routine Lab 07/14/17 11:48 Completed CMP Routine Lab 07/14/17 11:48 Completed CULTURE,WOUND Routine Lab 07/14/17 11:00 Received Metolazone 2.5 mg [Zaroxolyn 2.5 MG] Med 07/14/17 10:00 Active 5 mg PO QOD Patient Care Notes (Last 24 hours) 07/14/17 12:08 Nursing Note by Halley Walker Dressing change to left lower leg. Cleansed with sterile water with wound culture obtained and sent to lab, pictures of wound taken and placed in chart. Silver-Sulfadiazine cream applied with non-adherant telfa pad and wrapped with soft gauze. Site painful upon palpation Pt tolerated dressing changed well. Denies need for pain meds at this time. Initialized on 07/14/17 12:08 - END OF NOTE Code(s): L03.116 - CELLULITIS OF LEFT LOWER LIMB (3) Type 2 diabetes mellitus Current Visit: Yes Status: Chronic Qualifiers:
[2017-07-15] MEDS: Zosyn 3.375GM/100 Ml D5W 3.375 GM/100 ML IVPB IV SCH ×3 (06:27→17:35)
[2017-07-15] MEDS: Amaryl 2 MG PO SCH (07:58)
[2017-07-15] MEDS: Tylenol #3 Tablet PO PRN ×2 (08:27→22:32)
[2017-07-15] MEDS: Neurontin 400 MG PO SCH ×3 (09:27→22:28)
[2017-07-15] MEDS: BENTYL 20 MG PO SCH ×4 (09:27→22:27)
[2017-07-15] MEDS: Actos 30 MG PO SCH (09:27)
[2017-07-15] MEDS: Klor Con 10 MEQ PO SCH ×4 (09:27→22:27)
[2017-07-15] MEDS: FERREX 150 PO SCH (09:27)
[2017-07-15] MEDS: DEMADEX 20 MG PO SCH ×3 (09:28→17:36)
[2017-07-15] MEDS: FOLTX (FOLBIC) PO SCH (09:28)
[2017-07-15] MEDS: LOPID 600 MG PO SCH (09:28)
[2017-07-15] MEDS: xanAX 0.5 MG PO SCH ×2 (09:28→22:28)
[2017-07-15] MEDS: Toprol Xl 100 MG PO SCH (09:28)
[2017-07-15] MEDS: SILVADENE 50 GM TP SCH (11:00)
--- NOTE | 2017-07-15 12:50 | PCM.NOTE ---
Date and Time: 07/15/17 1249 Subjective Assessment: doing ok - Review of Systems Constitutional: No Fever, No Chills Eyes: No Symptoms Ears, Nose, & Throat: No Symptoms Respiratory: No Cough, No Short Of Breath Cardiac: No Chest Pain, No Edema, No Syncope Abdominal/Gastrointestinal: No Abdominal Pain, No Nausea, No Vomiting, No Diarrhea Genitourinary Symptoms: No Dysuria Musculoskeletal: No Back Pain, No Neck Pain Skin: No Rash Neurological: No Dizziness, No Focal Weakness, No Sensory Changes Psychological: No Symptoms Endocrine: No Symptoms Hematologic/Lymphatic: No Symptoms Immunological/Allergic: No Symptoms Objective Exam General Appearance: no apparent distress, alert Neurologic Exam: alert, oriented x 3, cooperative, normal mood/affect, nml cerebellar function, sensation nml, No motor deficits Skin Exam: normal color, warm, dry Eye Exam: PERRL, EOMI, eyes nml inspection Ears, Nose, Throat Exam: normal ENT inspection, pharynx normal, moist mucous membranes Neck Exam: normal inspection, non-tender, supple, full range of motion Respiratory Exam: normal breath sounds, lungs clear, No respiratory distress Cardiovascular Exam: regular rate/rhythm, normal heart sounds Gastrointestinal/Abdomen Exam: soft, No tenderness, No mass Extremity Exam: normal inspection, normal range of motion Back Exam: normal inspection, normal range of motion, No CVA tenderness, No vertebral tenderness Pelvic Exam: deferred Rectal Exam: deferred OBJECTIVE DATA Vital Signs: Vital Signs - 24 hr Temp Pulse Resp BP Pulse Ox 07/15/17 11:25 98.0 F 67 16 127/64 94 L 07/15/17 07:21 98.9 F 85 16 136/63 97 07/15/17 04:20 98.5 F 81 20 139/62 98 07/14/17 23:33 98.7 F 75 20 152/63 98 07/14/17 19:49 98.3 F 72 20 117/57 98 07/14/17 16:00 98.5 F 53 L 16 113/57 100 Pain Assessment - Last Documented Pain Intensity 3 Pain Scale Used 0-10 Pain Scale Intake and Output: Intake & Output 07/13/17 07/14/17 07/15/17 07/16/17 11:59 11:59 11:59 11:59 Intake Total 620 2405 Output Total 3400 Balance 620 -994 Lab Results: Accuchecks Date 07/14/17 Accucheck Value: 152 Accucheck Value: 111 Accucheck Value: 146 Accucheck Value: 152 Multi-Disciplinary Progress Notes: Multi-Disciplinary Progress Notes 07/15/17 12:00 (created 07/15/17 12:23) Case Management Note by Vicky Armendariz REVIEWED DISCHARGE PLAN, CONTINUES TO PLAN TO RETURN HOME TO PRE EPISODIC LEVEL OF FNX. INDEPENDENT WITH ALL ADL'S. IS GOING TO NEED F/U CARE OF LLE WOUND. DID DISCUSS HHC SERVICES VS OUTPATIENT P.T. PT WANTS TO DISCUSS WITH DR. HARMAN. WILL FOLLOW. Initialized on 07/15/17 12:23 - END OF NOTE Assessment/Plan (1) Cellulitis and abscess of leg, except foot Current Visit: Yes Status: Acute Assessment & Plan: continue present management Code(s): L03.119 - CELLULITIS OF UNSPECIFIED PART OF LIMB; L02.419 - CUTANEOUS ABSCESS OF LIMB, UNSPECIFIED (2) Cellulitis of left anterior lower leg Current Visit: Yes Status: Acute Code(s): L03.116 - CELLULITIS OF LEFT LOWER LIMB (3) Type 2 diabetes mellitus Current Visit: Yes Status: Chronic Qualifiers:
[2017-07-15] MEDS: XARELTO 10 MG TABLET PO SCH (17:35)
[2017-07-16] MEDS: Zosyn 3.375GM/100 Ml D5W 3.375 GM/100 ML IVPB IV SCH ×3 (00:36→12:23)
[2017-07-16 07:24] VITALS: O2SAT 98
[2017-07-16] MEDS: Amaryl 2 MG PO SCH (08:52)
--- NOTE | 2017-07-16 09:06 | PCM.DS ---
Discharge Summary Date of Admission: 07/14/17 07:00 Admitting Physician: ANTHONY HARMAN Primary Care Provider: ANTHONY HARMAN Allergies Allergies No Known Drug Allergies Allergy (Verified 03/01/17 15:44) Hospital Summary - Hospital Course Hospital Course: Chief Complaint Diagnosis abcess/cellulitis of left lower extremity Allergies Allergy/AdvReac Type Severity Reaction Status Date / Time No Known Drug Allergies Allergy Verified 03/01/17 15:44 Vital Signs (Last 24 hours) Temp Pulse Resp BP Pulse Ox 07/16/17 07:23 98.3 F 76 16 142/67 98 07/16/17 04:00 98.1 F 72 12 134/62 96 07/16/17 00:00 98.1 F 78 20 128/59 99 07/15/17 20:00 98.1 F 68 20 154/65 100 07/15/17 16:00 98.1 F 68 16 119/58 100 07/15/17 11:25 98.0 F 67 16 127/64 94 L Home Medications Medication Instructions Recorded Confirmed Last Taken Type Acetaminophen with Codeine 1 each PO TID PRN 07/12/17 07/12/17 Unknown History [Acetaminophen-Cod #3 Tablet] Cinacalcet HCl [Sensipar] 30 mg PO DAILY 07/12/17 07/13/17 Unknown History Dicyclomine HCl 20 mg [Bentyl 10 mg PO QID 07/12/17 07/12/17 Unknown History 20 mg] Glimepiride [Glimepiride] 2 mg PO DAILY 07/12/17 07/12/17 Unknown History Iron Ps Complex/B12/Folic Acid 150 mg PO DAILY 07/12/17 07/12/17 Unknown History [Poly-Iron 150 Forte Capsule] Metoprolol Succinate 100 mg 100 mg PO DAILY 07/12/17 07/12/17 Unknown History [Toprol Xl 100 MG] Torsemide [Torsemide] 20 mg PO TID 07/12/17 07/12/17 Unknown History metOLazone [Metolazone] 5 mg PO UD 07/12/17 07/12/17 Unknown History Silver Sulfadiazine [Ssd] 1 gm TOP BID 07/13/17 07/13/17 Unknown History cephALEXin [Cephalexin] 500 mg PO Q6H 07/13/17 07/13/17 07/12/17 09:00 History Current Medications Generic Name Dose Route Start Last Admin Trade Name Freq PRN Reason Stop Dose Admin Acetaminophen/Codeine Phosphate 1 tab 07/13/17 08:11 07/15/17 22:32 Tylenol #3 Tablet PO 08/12/17 08:10 1 tab TID PRN PRN Administration PAIN Alprazolam 0.5 mg 07/13/17 10:00 07/15/17 22:28 Xanax 0.5 Mg PO 08/12/17 09:59 0.5 mg BID DANIEL Administration Dicyclomine HCl 10 mg 07/13/17 10:00 07/15/17 22:27 Bentyl 20 Mg PO 08/12/17 09:59 10 mg QID DANIEL Administration Folic Acid 1 tab 07/13/17 10:00 07/15/17 09:28 Foltx (Folbic) PO 08/12/17 09:59 1 tab DAILY DANIEL Administration Gabapentin 400 mg 07/13/17 10:00 07/15/17 22:28 Neurontin 400 Mg PO 08/12/17 09:59 400 mg TID DANIEL Administration Gemfibrozil 600 mg 07/13/17 10:00 07/15/17 09:28 Lopid 600 Mg PO 08/12/17 09:59 600 mg DAILY DANIEL Administration Glimepiride 2 mg 07/13/17 08:00 07/16/17 08:52 Amaryl 2 Mg PO 08/12/17 07:59 2 mg DAILY@0800 DANIEL Administration Piperacillin Sod/Tazobactam Sod 3.375 gm in 100 mls @ 200 mls/hr 07/13/17 00: 00 07/16/17 05:53 Zosyn 3.375gm/100 Ml D5w IV 08/12/17 00:00 200 mls/hr Q6HT DANIEL Administration Insulin Human Regular 0 unit 07/12/17 20:43 07/15/17 11:59 Novolin R SQ 08/11/17 20:42 3 unit UD PRN Administration HYPERGLYCEMIA Metolazone 5 mg 07/14/17 10:00 07/14/17 10:24 Zaroxolyn 2.5 Mg PO 08/13/17 09:59 5 mg QOD DANIEL Administration Metoprolol Succinate 100 mg 07/13/17 10:00 07/15/17 09:28 Toprol Xl 100 Mg PO 08/12/17 09:59 100 mg DAILY DANIEL Administration Pioglitazone HCl 30 mg 07/13/17 10:00 07/15/17 09:27 Actos 30 Mg PO 08/12/17 09:59 30 mg DAILY DANIEL Administration Polysaccharide Iron Complex 150 mg 07/13/17 10:00 07/15/17 09:27 Ferrex 150 PO 08/12/17 09:59 150 mg DAILY DANIEL Administration Potassium Chloride 40 meq 07/13/17 10:00 07/15/17 22:27 Klor Con 10 Meq PO 08/12/17 09:59 40 meq QID DANIEL Administration Torsemide 20 mg 07/13/17 10:00 07/15/17 17:36 Demadex 20 Mg PO 08/12/17 09:59 20 mg TID DIURETIC DANIEL Administration Discontinued Medications Generic Name Dose Route Start Last Admin Trade Name Freq PRN Reason Stop Dose Admin Potassium Chloride/Sodium Chloride 1,000 mls @ 100 mls/hr 07/12/17 20:43 09:34 Sodium Chloride 0.9% W/ 20 Meq Kcl/Liter IV 08/11/17 20:42 100 mls/hr .Q10H DANIEL Administration Silver Sulfadiazine 0 gm 07/13/17 10:00 07/15/17 11:00 Silvadene 50 Gm TP 08/12/17 09:59 Not Given BID DANIEL Intake & Output (Last 24 hours) 07/13/17 07/14/17 07/15/17 07/16/17 11:59 11:59 11:59 11:59 Intake Total 1247 4434 2405 1717 Output Total 400 1850 3400 3600 Balance 847 2009 -885 -5469 Weight 102.4 kg Laboratory Results (Last 24 hours) 07/15/17 16:43 Glucose 91 Orders (Last 24 hours) Category Date Time Status Glucose Stat Lab 07/15/17 16:43 Completed Patient Care Notes (Last 24 hours) 07/15/17 12:00 (created 07/15/17 12:23) Case Management Note by Vicky Armendariz REVIEWED DISCHARGE PLAN, CONTINUES TO PLAN TO RETURN HOME TO PRE EPISODIC LEVEL OF FNX. INDEPENDENT WITH ALL ADL'S. IS GOING TO NEED F/U CARE OF LLE WOUND. DID DISCUSS HHC SERVICES VS OUTPATIENT P.T. PT WANTS TO DISCUSS WITH DR. HARMAN. WILL FOLLOW. Initialized on 07/15/17 12:23 - END OF NOTE - Vitals & Intake/Output Vital Signs: Vital Signs Temperature 98.3 F 07/16/17 07:23 Pulse Rate 76 07/16/17 07:23 Respiratory Rate 16 07/16/17 07:23 Blood Pressure 142/67 07/16/17 07:23 O2 Sat by Pulse Oximetry 98 07/16/17 07:23 Intake & Output: Intake & Output 07/13/17 07/14/17 07/15/17 07/16/17 11:59 11:59 11:59 11:59 Intake Total 620 2405 1717 Output Total 3400 3600 Balance 844 -248 -0505 - Lab Result Diagrams: 07/14/17 11:48 07/14/17 11:48 Lab Results-Last 24 Hrs: Accuchecks Date 07/15/17 Time 21:30 Accucheck Value: 100 Accucheck Value: 179 Accucheck Value: 40 Accucheck Value: 152 Lab Results-Last 24 Hours 07/15/17 Range/Units 16:43 Glucose 91 (74-106) mg/dL Micro Results-Entire Visit: Accuchecks Date 07/15/17 Time 21:30 Accucheck Value: 100 Accucheck Value: 179 Accucheck Value: 40 Accucheck Value: 152 Discharge Exam General Appearance: no apparent distress, alert Neurologic Exam: alert, oriented x 3, cooperative, normal mood/affect, nml cerebellar function, sensation nml, No motor deficits Skin Exam: normal color, warm, dry Eye Exam: PERRL, EOMI, eyes nml inspection Ears, Nose, Throat Exam: normal ENT inspection, pharynx normal, moist mucous membranes Neck Exam: normal inspection, non-tender, supple, full range of motion Respiratory Exam: normal breath sounds, lungs clear, No respiratory distress Cardiovascular Exam: regular rate/rhythm, normal heart sounds Gastrointestinal/Abdomen Exam: soft, No tenderness, No mass Extremity Exam: normal inspection, normal range of motion Back Exam: normal inspection, normal range of motion, No CVA tenderness, No vertebral tenderness Pelvic Exam: deferred Rectal Exam: deferred Final Diagnosis/Problem List - Final Discharge Diagnosis/Problem (1) Cellulitis and abscess of leg, except foot Current Visit: Yes Status: Acute Assessment & Plan: Last Vital Signs Temp 98.3 F 07/16/17 07:23 Pulse 76 07/16/17 07:23 Resp 16 07/16/17 07:23 BP 142/67 07/16/17 07:23 Pulse Ox 98 07/16/17 07:23 Allergies No Known Drug Allergies Allergy (Verified 03/01/17 15:44) Active Medications Acetaminophen/Codeine Phosphate (Tylenol #3 Tablet) 1 tab PO TID PRN PRN PRN Reason: PAIN Stop: 08/12/17 08:10 Last Admin: 07/15/17 22:32 Dose: 1 tab Alprazolam (Xanax 0.5 Mg) 0.5 mg PO BID [facility] Stop: 08/12/17 09:59 Last Admin: 07/15/17 22:28 Dose: 0.5 mg Dicyclomine HCl (Bentyl 20 Mg) 10 mg PO QID [facility] Stop: 08/12/17 09:59 Last Admin: 07/15/17 22:27 Dose: 10 mg Folic Acid (Foltx (Folbic)) 1 tab PO DAILY [facility] Stop: 08/12/17 09:59 Last Admin: 07/15/17 09:28 Dose: 1 tab Gabapentin (Neurontin 400 Mg) 400 mg PO TID [facility] Stop: 08/12/17 09:59 Last Admin: 07/15/17 22:28 Dose: 400 mg Gemfibrozil (Lopid 600 Mg) 600 mg PO DAILY [facility] Stop: 08/12/17 09:59 Last Admin: 07/15/17 09:28 Dose: 600 mg Glimepiride (Amaryl 2 Mg) 2 mg PO DAILY@0800 [facility] Stop: 08/12/17 07:59 Last Admin: 07/16/17 08:52 Dose: 2 mg Piperacillin Sod/Tazobactam Sod (Zosyn 3.375gm/100 Ml D5w) 3.375 gm in 100 mls @ 200 mls/hr IV Q6HT [facility] Stop: 08/12/17 00:00 Last Admin: 07/16/17 05:53 Dose: 200 mls/hr Insulin Human Regular (Novolin R) 0 unit SQ UD PRN PRN Reason: HYPERGLYCEMIA Stop: 08/11/17 20:42 Last Admin: 07/15/17 11:59 Dose: 3 unit Metolazone (Zaroxolyn 2.5 Mg) 5 mg PO QOD [facility] Stop: 08/13/17 09:59 Last Admin: 07/14/17 10:24 Dose: 5 mg Metoprolol Succinate (Toprol Xl 100 Mg) 100 mg PO DAILY [facility] Stop: 08/12/17 09:59 Last Admin: 07/15/17 09:28 Dose: 100 mg Pioglitazone HCl (Actos 30 Mg) 30 mg PO DAILY [facility] Stop: 08/12/17 09:59 Last Admin: 07/15/17 09:27 Dose: 30 mg Polysaccharide Iron Complex (Ferrex 150) 150 mg PO DAILY [facility] Stop: 08/12/17 09:59 Last Admin: 07/15/17 09:27 Dose: 150 mg Potassium Chloride (Klor Con 10 Meq) 40 meq PO QID [facility] Stop: 08/12/17 09:59 Last Admin: 07/15/17 22:27 Dose: 40 meq Torsemide (Demadex 20 Mg) 20 mg PO TID DIURETIC [facility] Stop: 08/12/17 09:59 Last Admin: 07/15/17 17:36 Dose: 20 mg Intake & Output 07/15/17 07/16/17 11:59 11:59 Intake Total 2405 1717 Output Total 3400 3600 Balance -995 -1883 Lab Tests 07/15/17 16:43 Glucose 91 (2) Cellulitis of left anterior lower leg Current Visit: Yes Status: Acute (3) Type 2 diabetes mellitus Current Visit: Yes Status: Chronic - Discharge Discharge Date: 07/16/17 Disposition: Home, Self-Care Condition: Stable Prescriptions: New Cephalexin Mh 500 mg [Keflex 500 mg] 500 mg PO QID #30 capsule No Action Gemfibrozil 600 mg [Lopid 600 mg] 600 mg PO DAILY ALPRAZolam [Xanax 0.5 mg] 0.5 mg PO BID Pioglitazone HCl [Actos] 30 mg PO DAILY Potassium Chloride 20 Meq [Klor-Con 20 MEQ] 40 meq PO QID Gabapentin [Neurontin] 400 mg PO TID Rivaroxaban [Xarelto] 15 mg PO DAILY Metoprolol Succinate 100 mg [Toprol Xl 100 MG] 100 mg PO DAILY Torsemide [Torsemide] 20 mg PO TID metOLazone [Metolazone] 5 mg PO UD Glimepiride [Glimepiride] 2 mg PO DAILY Silver Sulfadiazine [Ssd] 1 gm TOP BID cephALEXin [Cephalexin] 500 mg PO Q6H Cinacalcet HCl [Sensipar] 30 mg PO DAILY Iron Ps Complex/B12/Folic Acid [Poly-Iron 150 Forte Capsule] 150 mg PO DAILY Dicyclomine HCl 20 mg [Bentyl 20 mg] 10 mg PO QID Acetaminophen with Codeine [Acetaminophen-Cod #3 Tablet] 1 each PO TID PRN PRN Reason: Pain Follow up with: ANTHONY HARMAN MD [Primary Care Provider] - 07/23/17 2:00 pm
[2017-07-16] MEDS: Klor Con 10 MEQ PO SCH ×2 (09:42→12:32)
[2017-07-16] MEDS: FERREX 150 PO SCH (09:43)
[2017-07-16] MEDS: Actos 30 MG PO SCH (09:44)
[2017-07-16] MEDS: xanAX 0.5 MG PO SCH (09:45)
[2017-07-16] MEDS: Neurontin 400 MG PO SCH (09:45)
[2017-07-16] MEDS: LOPID 600 MG PO SCH (09:45)
[2017-07-16] MEDS: BENTYL 20 MG PO SCH ×2 (09:46→12:33)
[2017-07-16] MEDS: DEMADEX 20 MG PO SCH ×2 (09:46→12:32)
[2017-07-16] MEDS: Toprol Xl 100 MG PO SCH (09:47)
[2017-07-16] MEDS: FOLTX (FOLBIC) PO SCH (09:47)
[2017-07-16] MEDS: Zaroxolyn 2.5 MG PO SCH (09:53)
[2017-07-16] MEDS: Tylenol #3 Tablet PO PRN (09:56)
[2017-07-16 12:21] VITALS: BP 140/62; PULSE 81
== END 2017-07-16 15:05 | disposition home health service (06) | DRG 603 ==
LOC: ED 19:39 → MED SURG 20:36 → OBSVTOIN 07-14 07:00
PROVIDERS: ADMIT General Practice; ATTEND General Practice
DX: L03.119 Cellulitis of unspecified part of limb (principal); L97.929 Non-pressure chronic ulcer of unspecified part of left lower leg with unspecified severity; L02.419 Cutaneous abscess of limb, unspecified; I10 Essential (primary) hypertension; E11.9 Type 2 diabetes mellitus without complications; Z79.4 Long term (current) use of insulin; E78.00 Pure hypercholesterolemia, unspecified; K21.9 Gastro-esophageal reflux disease without esophagitis; F32.9 Major depressive disorder, single episode, unspecified; I48.91 Unspecified atrial fibrillation; M79.89 Other specified soft tissue disorders; Z79.899 Other long term (current) drug therapy
CPT/HCPCS: 36415; 80053; 82947; 82962; 83036; 83605; 85025; 87070; 97161; 97598; 99285; G0378; 99283; A6457; J2543; A9270-GY

== ENCOUNTER 2017-10-12 16:42 | Inpatient (IN) | payer MEDICARE ==
--- NOTE | 2017-10-12 17:50 | ERPHSYRPT ---
- History of Present Illness Time Seen by Provider: 10/12/17 17:41 Source: patient Patient Subjective Stated Complaint: pt reports bilateral leg swelling and seeping beginning several days ago-reports hx of this-denies fever Triage Nursing Assessment: large amount of swelling and moderate amount of seeping noted to bilateral legs-pt ambulaotry slowly to ed bed Physician History: The patient is a 71-year-old female with a friend complaining of bilateral lower leg swelling, redness, and weeping for the last several days. She had something similar but not as bad occur a few weeks ago and she was hospitalized for this. The patient recently went to [facility] by car and returned today. She noticed her legs were weeping. She denies fever or chills. Her past medical history is significant for lower extremity cellulitis, lower extremity edema, CHF, diabetes, hypertension, A-fib, and high cholesterol. Method of Injury: unknown Occurred: days ago (several) Quality: tightness Severity of Pain-Max: mild Severity of Pain-Current: mild Lower Extremities Pain: leg: left Modifying Factors: Improves With: nothing Associated Symptoms: none Allergies/Adverse Reactions: No Known Drug Allergies Allergy (Verified 10/12/17 17:17) Home Medications: ALPRAZolam [Xanax 0.5 mg] 0.5 mg PO BID 04/25/15 [History] Gemfibrozil 600 mg [Lopid 600 mg] 600 mg PO DAILY 04/25/15 [History] Pioglitazone HCl [Actos] 30 mg PO DAILY 04/25/15 [History] Potassium Chloride 20 Meq [Klor-Con 20 MEQ] 40 meq PO QID 05/31/16 [History] Gabapentin [Neurontin] 400 mg PO TID 06/11/16 [History] Rivaroxaban [Xarelto] 15 mg PO DAILY 03/01/17 [History] Acetaminophen with Codeine [Acetaminophen-Cod #3 Tablet] 1 each PO TID PRN 07/12 [History] Cinacalcet HCl [Sensipar] 30 mg PO DAILY 07/12/17 [History] Dicyclomine HCl 20 mg [Bentyl 20 mg] 10 mg PO QID 07/12/17 [History] Glimepiride 2 mg PO DAILY 07/12/17 [History] Iron Ps Complex/B12/Folic Acid [Poly-Iron 150 Forte Capsule] 150 mg PO DAILY [History] Metoprolol Succinate 100 mg [Toprol Xl 100 MG] 100 mg PO DAILY 07/12/17 [ History] Torsemide 20 mg PO TID 07/12/17 [History] metOLazone [Metolazone] 5 mg PO UD 07/12/17 [History] Silver Sulfadiazine [Ssd] 1 gm TOP BID 07/13/17 [History] cephALEXin [Cephalexin] 500 mg PO Q6H 07/13/17 [History] Hx Tetanus, Diphtheria Vaccination/Date Given: No Hx Influenza Vaccination/Date Given: Yes Hx Pneumococcal Vaccination/Date Given: No Immunizations Up to Date: Yes - Review of Systems Constitutional: No Fever, No Chills Eyes: No Symptoms Ears, Nose, & Throat: No Symptoms Respiratory: No Cough, No Dyspnea Cardiac: Edema, No Chest Pain, No Syncope Abdominal/Gastrointestinal: No Abdominal Pain, No Nausea, No Vomiting, No Diarrhea Genitourinary Symptoms: No Dysuria Musculoskeletal: No Back Pain, No Neck Pain Skin: Cellulitis, Skin Lesions Neurological: No Dizziness, No Focal Weakness, No Sensory Changes Psychological: No Symptoms Endocrine: No Symptoms Hematologic/Lymphatic: No Symptoms Immunological/Allergic: No Symptoms All Other Systems: Reviewed and Negative - Past Medical History Pertinent Past Medical History: Yes Neurological History: No Pertinent History ENT History: No Pertinent History Cardiac History: Arrhythmia, High Cholesterol, Hypertension Respiratory History: No Pertinent History Endocrine Medical History: Diabetes Type II Musculoskeletal History: No Pertinent History GI Medical History: GERD, Gallbladder Disease, Hernia History: Renal Disease Psycho-Social History: Depression Female Reproductive Disorders: No Pertinent History Other Medical History: A-Fib - Past Surgical History Past Surgical History: Yes Neuro Surgical History: No Pertinent History Cardiac: No Pertinent History Respiratory: No Pertinent History Gastrointestinal: Cholecystectomy, Hernia Repair Genitourinary: Other Musculoskeletal: No Pertinent History Female Surgical History: Hysterectomy Other Surgical History: RECTOCELE. BLADDER TACT UP. cholecystectomy, has had elevated labs with kidneys, hernia repair - Social History Smoking Status: Never smoker Exposure to second hand smoke: Yes Drug Use: none Patient Lives Alone: No - Female History Hx Now: No - Nursing Vital Signs Nursing Vital Signs: Initial Vital Signs Temperature 98.3 F 10/12/17 16:50 Pulse Rate 88 10/12/17 16:50 Respiratory Rate 18 10/12/17 16:50 Blood Pressure 157/64 10/12/17 16:50 O2 Sat by Pulse Oximetry 97 10/12/17 16:50 Pain Scale Pain Intensity 6 - Physical Exam General Appearance: alert Eyes, Ears, Nose, Throat Exam: moist mucous membranes Neck Exam: non-tender, supple Cardiovascular/Respiratory Exam: decreased breath sounds, murmur Gastrointestinal/Abdominal Exam: non-tender, guarding Back Exam: normal inspection, No vertebral tenderness Hips Exam: bilateral: normal inspection Legs Exam: bilateral leg: swelling (severe lower leg edema with erythema and weeping) Knees Exam: bilateral knee: normal inspection Ankle Exam: bilateral ankle: swelling Foot Exam: bilateral foot: swelling Neuro/Tendon Exam: normal sensation, normal motor functions Mental Status Exam: alert, oriented x 3, cooperative Skin Exam: rash (lower extremities) SpO2 Interpretation: normal SpO2: 97 Oxygen Delivery: Room Air - Course EKG Interpreted by Me: RATE, Sinus Rhythm, NORMAL AXIS, NORMAL INTERVALS, Right Bundle Branch Block - Radiology Exams Chest X-ray Interpretation: Interpreted by me, Negative Ordered Tests: Active Orders 24 hr Category Date Time Status Regenerator Operator STAT Care 10/12/17 17:55 Active EKG-ER Only STAT Care 10/12/17 17:54 Active IV Insertion STAT Care 10/12/17 17:54 Active Pulse Oximetry (ED) STAT Care 10/12/17 17:54 Active CHEST 2 VIEWS (PA AND LAT) Stat Exams 10/12/17 17:55 Taken CBC W DIFF Stat Lab 10/12/17 17:54 Completed CMP Stat Lab 10/12/17 17:54 Received Lactic Acid Stat Lab 10/12/17 18:10 Completed NT PRO BNP Stat Lab 10/12/17 17:54 Received TROPONIN Q3H Lab 10/12/17 18:00 Completed TROPONIN Q3H Lab 10/12/17 21:00 Ordered TROPONIN Q3H Lab 10/13/17 00:00 Ordered TROPONIN Q3H Lab 10/13/17 03:00 Ordered TROPONIN Q3H Lab 10/13/17 06:00 Ordered Medication Summary Discontinued Medications Generic Name Dose Route Start Last Admin Trade Name Freq PRN Reason Stop Dose Admin Furosemide 40 mg 10/12/17 17:54 10/12/17 18:24 Lasix 40 Mg/4 Ml IV 10/12/17 17:55 40 mg STAT ONE Administration Furosemide Confirm 10/12/17 18:11 Lasix 40 Mg/4 Ml Administered 10/12/17 18:12 Dose 40 mg .ROUTE .STK-MED ONE Lab/Rad Data: Laboratory Result Diagrams 10/12/17 17:54 Laboratory Results 10/12/17 10/12/17 10/12/17 Range/Units 18:10 18:00 17:54 WBC 7.7 (4.0-10.5) K/mm3 RBC 2.92 L (4.1-5.4) M/mm3 Hgb 9.1 L (12.0-16.0) gm/dl Hct 27.8 L (35-47) % MCV 95.2 (78-100) fl MCH 31.1 (26-32) pg MCHC 32.7 (32-36) g/dl RDW 13.9 (11.5-14.0) % Plt Count 272 (150-450) K/mm3 MPV 10.1 H (6-9.5) fl Gran % 73.9 H (36.0-66.0) % Eos # (Auto) 0.05 (0-0.5) Absolute Lymphs (auto) 1.07 (1.0-4.6) Absolute Monos (auto) 0.87 (0.0-1.3) Lymphocytes % 14.0 L (24.0-44.0) % Monocytes % 11.4 (0.0-12.0) % Eosinophils % 0.7 (0.00-5.0) % Basophils % 0.0 (0.0-0.4) % Absolute Granulocytes 5.66 (1.4-6.9) Basophils # 0 (0-0.4) Lactic Acid 1.1 (0.4-2.0) Troponin I 0.021 (0.000-0.034) ng/mL - Progress Progress: unchanged Discussed with DrRiver: Other (Dr Lopes for Dr Harman) Counseled pt/family regarding: lab results, diagnosis, rad results - Departure Time of Disposition: 20:28 Departure Disposition: Observation (per Dr Lopes for Dr Harman) Clinical Impression: Cellulitis Condition: Stable Critical Care Time: No Referrals: ANTHONY HARMAN MD [Primary Care Provider] -
[2017-10-12] MEDS ORDERED: Lasix 40 MG/4 ML IV ONE (17:54)
[2017-10-12] MEDS ORDERED: Lasix 40 MG/4 ML ONE (18:11)
[2017-10-12 18:28] LABS: Basophil (Absolute #) 0 (0-0.4); Eosinophil % 0.7 % (0.00-5.0); Eosinophil (Absolute #) 0.05 (0-0.5); Granulocyte Absolute (ANC) 5.66 (1.4-6.9); Granulocytes % 73.9 % (36.0-66.0); Hematocrit 27.8 % (35-47); Hemoglobin 9.1 gm/dl (12.0-16.0); Lymphocyte (Absolute #) 1.07 (1.0-4.6); Mean Cell Volume 95.2 fl (78-100); Mean Corpuscular Hgb Concent. 32.7 g/dl (32-36); Mean Platelet Volume 10.1 fl (6-9.5); Monocyte (Absolute #) 0.87 (0.0-1.3); Monocytes % 11.4 % (0.0-12.0); Platelet Count 272 K/mm3 (150-450); Red Blood Count 2.92 M/mm3 (4.1-5.4); Red Cell Distribution Width 13.9 % (11.5-14.0); White Blood Count 7.7 K/mm3 (4.0-10.5)
[2017-10-12 19:19] LABS: Mean Corpuscular Hemoglobin 31.1 pg (26-32)
[2017-10-12 20:41] LABS: ALBUMIN 4.2 g/dL (3.5-5.0); ANION GAP 16.2 MEQ/L (5-15); BILIRUBIN,TOTAL 0.5 mg/dL (0.2-1.3); Calcium 8.7 mg/dL (8.4-10.2); Creatinine 1 1.85 mg/dL (0.52-1.04); Potassium 3.1 mmol/L (3.5-5.1); Total Protein 7.9 g/dL (6.3-8.2)
[2017-10-12] MEDS ORDERED: TYLENOL 325 MG PO PRN (21:18)
--- NOTE | 2017-10-12 22:15 | XRAY ---
Indication: Bilateral lower extremity swelling with cellulitis. Comparison: April 05, 2015. PA/lateral chest again hyperinflated without focal infiltrate, consolidation, or large effusion. Heart is not enlarged. Vascularity normal. Bony thorax intact again with mild osteopenia and degenerative changes. Impression: Stable nonacute chest with chronic features.
[2017-10-12] MEDS ORDERED: Vancomycin 1GM/ Ns 250ML*** 250 ML IV ONE (22:37)
[2017-10-12] MEDS: VANCOCIN 1 GM VIAL*** 1 GM in Sodium Chloride 0.9% 250 ML 250 ML IV SCH (22:39)
[2017-10-12] MEDS: Tylenol #3 Tablet PO PRN (23:59)
[2017-10-12] MEDS: Zosyn 3.375GM/100 Ml D5W 3.375 GM/100 ML IVPB IV SCH (23:59)
[2017-10-13] MEDS: Zosyn 3.375GM/100 Ml D5W 3.375 GM/100 ML IVPB IV SCH (05:46)
[2017-10-13 06:22] LABS: ANION GAP 13.8 MEQ/L (5-15); Calcium 8.4 mg/dL (8.4-10.2); Creatinine 1 1.74 mg/dL (0.52-1.04)
[2017-10-13 06:24] LABS: Potassium 2.8 mmol/L (3.5-5.1)
[2017-10-13] MEDS ORDERED: Klor Con 10 MEQ PO ONE ×3 (06:56→14:13)
[2017-10-13] MEDS: POTASSIUM CHLORIDE 20 mEq IN WATER 100ML 20 MEQ/100 ML BAG IV SCH ×2 (07:24→09:54)
[2017-10-13 07:28] LABS: BASOPHIL % 0.2 % (0.0-0.4); Basophil (Absolute #) 0.01 (0-0.4); Eosinophil % 1.1 % (0.00-5.0); Eosinophil (Absolute #) 0.06 (0-0.5); Granulocyte Absolute (ANC) 4.08 (1.4-6.9); Granulocytes % 72.9 % (36.0-66.0); Hemoglobin 8.9 gm/dl (12.0-16.0); Lymphocyte (Absolute #) 0.78 (1.0-4.6); Mean Cell Volume 94.7 fl (78-100); Mean Corpuscular Hemoglobin 31.2 pg (26-32); Mean Platelet Volume 10.6 fl (6-9.5); Monocyte (Absolute #) 0.66 (0.0-1.3); Monocytes % 11.8 % (0.0-12.0); Platelet Count 262 K/mm3 (150-450); Red Blood Count 2.85 M/mm3 (4.1-5.4); Red Cell Distribution Width 14.1 % (11.5-14.0); White Blood Count 5.6 K/mm3 (4.0-10.5)
[2017-10-13] MEDS ORDERED: Sodium Chloride 0.9% 500 ML 500 ML IV SCH (07:30)
[2017-10-13] MEDS: Tylenol #3 Tablet PO PRN ×3 (08:25→22:14)
[2017-10-13] MEDS: Zosyn 2.25 GM 2.25 GM in Dextrose 5%/Water IV Soln. 100ML PLUS BAG 100 ML IV SCH ×3 (12:50→23:54)
[2017-10-13] MEDS ORDERED: NON-FORMULARY ITEM (Potassium Chloride 20 Meq [Klor-Con 20 Meq] 40 MEQ) PO SCH (13:00)
[2017-10-13] MEDS: Amaryl 2 MG PO SCH (13:23)
[2017-10-13] MEDS: xanAX 0.5 MG PO SCH ×2 (13:24→22:14)
[2017-10-13] MEDS: BENTYL 20 MG PO SCH ×3 (13:24→22:14)
[2017-10-13] MEDS: Neurontin 400 MG PO SCH ×2 (13:24→22:14)
[2017-10-13] MEDS ORDERED: Actos 30 MG PO SCH (13:30)
[2017-10-13] MEDS ORDERED: MEDICATION INTERVENTION PO SCH ×3 (13:45)
[2017-10-13] MEDS: Vitamin B-12 500 MCG PO SCH (14:03)
[2017-10-13] MEDS: LOPID 600 MG PO SCH (14:03)
[2017-10-13] MEDS: Toprol Xl 100 MG PO SCH (14:03)
[2017-10-13] MEDS: DEMADEX 20 MG PO SCH ×2 (14:03→17:25)
[2017-10-13] MEDS: XARELTO 10 MG TABLET PO SCH (14:06)
[2017-10-13] MEDS: Klor Con 10 MEQ PO SCH ×2 (14:15→22:15)
[2017-10-13] MEDS ORDERED: PHARMACY DOSING REQUIRED: VANCOMYCIN IV ONE (14:33)
[2017-10-13] MEDS ORDERED: PHARMACY DOSING REQUEST MC ONE (14:33)
[2017-10-13] MEDS: SILVADENE 50 GM TP SCH ×2 (17:23→22:17)
[2017-10-13 17:50] LABS: ANION GAP 15.9 MEQ/L (5-15); Calcium 9.1 mg/dL (8.4-10.2); Creatinine 1 1.76 mg/dL (0.52-1.04)
[2017-10-13] MEDS: VANCOCIN 1 GM VIAL*** 1 GM in Sodium Chloride 0.9% 250 ML 250 ML IV SCH (22:07)
[2017-10-14] MEDS: Zosyn 2.25 GM 2.25 GM in Dextrose 5%/Water IV Soln. 100ML PLUS BAG 100 ML IV SCH ×3 (06:26→17:07)
[2017-10-14] MEDS: XARELTO 10 MG TABLET PO SCH (08:11)
[2017-10-14] MEDS: xanAX 0.5 MG PO SCH ×2 (08:13→21:23)
[2017-10-14] MEDS: Toprol Xl 100 MG PO SCH (08:13)
[2017-10-14] MEDS: Klor Con 10 MEQ PO SCH ×4 (08:13→21:22)
[2017-10-14] MEDS: Tylenol #3 Tablet PO PRN ×3 (08:14→19:47)
[2017-10-14] MEDS: Neurontin 400 MG PO SCH ×3 (08:14→21:23)
[2017-10-14] MEDS: Amaryl 2 MG PO SCH (08:15)
[2017-10-14] MEDS: BENTYL 20 MG PO SCH ×4 (08:15→21:23)
[2017-10-14] MEDS: DEMADEX 20 MG PO SCH ×3 (08:16→16:23)
[2017-10-14] MEDS: LOPID 600 MG PO SCH (08:16)
[2017-10-14] MEDS: Vitamin B-12 500 MCG PO SCH (08:17)
[2017-10-14] MEDS ORDERED: IRON PS COMPLEX PO SCH (10:00)
[2017-10-14] MEDS ORDERED: PIOGLITAZONE HCL 30 MG PO SCH (10:00)
[2017-10-14] MEDS ORDERED: NON-FORMULARY ITEM (Cyanocobalamin (Vitamin B-12) [B-12] 1,000 MCG) PO SCH (10:00)
[2017-10-14] MEDS ORDERED: B12 PO SCH (10:00)
[2017-10-14] MEDS ORDERED: [UNRECOGNIZED DRUG - OTHER] PO SCH (10:00)
[2017-10-14] MEDS ORDERED: NON-FORMULARY ITEM (Rivaroxaban [Xarelto] 15 MG) PO SCH (10:00)
[2017-10-14] MEDS ORDERED: FOLIC ACID PO SCH (10:00)
[2017-10-14] MEDS ORDERED: CINACALCET HCL 30 MG PO SCH (10:00)
--- NOTE | 2017-10-14 10:05 | HP ---
HISTORY OF PRESENT ILLNESS: The patient is a 71 year-old individual who reported to the hospital with chief complaint of bilateral cellulitis on both lower extremities. The patient has history of multiple medical problems and has been on several medications. She presented to the emergency room with swelling, tenderness, pain in both leg extremities with oozing persistent with cellulitis and hence hospitalized for IV antibiotics. MEDICATIONS: Iron, metolazone, metoprolol, pioglitazone, potassium, Xarelto, Torsemide, gemfibrozil, Neurontin, dicyclomine, cyanocobalamin, cephalexin, aspirin with codeine, Alprazolam. PAST MEDICAL HISTORY: Chronic kidney disease, anemia, history of fluid retention and also with history of some blood clots, been on Xarelto. History of atrial fibrillation in the past. Hypertension, congestive heart failure, morbid obesity, diabetes mellitus, peripheral neuropathy, hyperlipidemia. PAST SURGICAL HISTORY: Rectocele, bladder surgery, cholecystectomy, hernia repair. FAMILY HISTORY: Noncontributory. SOCIAL HISTORY: Ex-smoker, negative alcohol. REVIEW OF SYSTEMS: The patient has significant erythema, tenderness, swelling of the lower extremities secondary to infection. The patient does have minor shortness of breath, morbid obesity. CVS: History of atrial fibrillation and mitral regurgitation. SKIN: Both lower extremities have infection consistent with the cellulitis. PHYSICAL EXAMINATION: The patient otherwise appears comfortable, not in any acute significant distress. Her vital signs as reported show blood pressure 157/64, pulse 80, respiratory rate 18, temperature 98.3F. Oxygen saturation 97%. HEENT: Pupils reactive. NECK: No JVD or thyromegaly. No lymphadenopathy. CHEST: Fair air entry bilaterally. CVS: Atrial fibrillation. ABDOMEN: Soft, nontender, bowel sounds present. EXTREMITIES: The patient has significant tenderness, swelling, erythema and oozing from both legs more so on the right side with some localized infection consistent with cellulitis. ASSESSMENT AND PLAN: 1) Bilateral cellulitis of the lower extremities. Will start with Vancomycin and also light compression. The patient is on Xarelto so probability of deep venous thrombosis is low. 2) Hypokalemia. Potassium supplementation aggressively done. 3) History of some congestive heart failure, fluid retention for which diuretic will be continued. The patient does have some edema in the lower extremities which will probably improve. However, some of the cellulitis is probably related to venous congestion and venous stasis for which bilateral compression of the legs is advised. 4) Diabetes. Accu-Chek and oral hypoglycemic, hold pioglitazone as the patient has fluid retention. 5) History of hypertension. Blood pressure medication will be continued. The patient will be continued. The patient will be continued on Vancomycin, Zosyn and clinical follow up on cellulitis. Will elevate the legs also bilateral leg compression will be done. Continue on Xarelto which serves as a deep venous thrombosis prophylaxis and also possibility of deep venous thrombosis is low with the presence of Xarelto. The patient was explained about her condition and understands that and understands the management.
[2017-10-14] MEDS: PATIENT OWN MEDICATION PO SCH ×6 (10:47→21:24)
[2017-10-14] MEDS: SILVADENE 50 GM TP SCH ×2 (10:48→10:59)
--- NOTE | 2017-10-14 12:22 | PCM.NOTE ---
Date and Time: 10/14/17 1220 Subjective Assessment: doing better - Review of Systems Constitutional: No Fever, No Chills Eyes: No Symptoms Ears, Nose, & Throat: No Symptoms Respiratory: No Cough, No Short Of Breath Cardiac: No Chest Pain, No Edema, No Syncope Abdominal/Gastrointestinal: No Abdominal Pain, No Nausea, No Vomiting, No Diarrhea Genitourinary Symptoms: No Dysuria Musculoskeletal: No Back Pain, No Neck Pain Skin: Cellulitis, No Rash Neurological: No Dizziness, No Focal Weakness, No Sensory Changes Psychological: No Symptoms Endocrine: No Symptoms Hematologic/Lymphatic: No Symptoms Immunological/Allergic: No Symptoms Objective Exam General Appearance: no apparent distress, alert Neurologic Exam: alert, oriented x 3, cooperative, normal mood/affect, nml cerebellar function, sensation nml, No motor deficits Skin Exam: normal color, warm, dry Eye Exam: PERRL, EOMI, eyes nml inspection Ears, Nose, Throat Exam: normal ENT inspection, pharynx normal, moist mucous membranes Neck Exam: normal inspection, non-tender, supple, full range of motion Respiratory Exam: normal breath sounds, lungs clear, No respiratory distress Cardiovascular Exam: regular rate/rhythm, normal heart sounds Gastrointestinal/Abdomen Exam: soft, No tenderness, No mass Extremity Exam: normal inspection, normal range of motion Back Exam: normal inspection, normal range of motion, No CVA tenderness, No vertebral tenderness Pelvic Exam: deferred Rectal Exam: deferred OBJECTIVE DATA Vital Signs: Vital Signs - 24 hr Temp Pulse Resp BP Pulse Ox 10/14/17 11:49 98.6 F 18 127/59 95 10/14/17 08:00 98.5 F 76 20 148/67 96 10/14/17 07:12 98.7 F 79 16 126/58 96 10/14/17 04:00 98.7 F 79 16 126/58 96 10/14/17 00:00 98.2 F 70 46 H 126/58 97 10/13/17 20:00 98.2 F 81 16 140/65 98 10/13/17 15:42 98.3 F 70 20 129/60 98 10/13/17 12:24 80 20 129/58 97 Pain Assessment - Last Documented Pain Intensity 8 Pain Scale Used 0-10 Pain Scale Intake and Output: Intake & Output 10/12/17 10/13/17 10/14/17 10/15/17 11:59 11:59 11:59 11:59 Intake Total 1778 8260 Output Total 1550 2100 Balance 222 420 Weight 106.7 kg 106.7 kg Lab Results: Accuchecks Date 10/14/17 Date 10/13/17 Time 09:00 Time 16:30 Accucheck Value: 182 Accucheck Value: 156 Accucheck Value: 222 Accucheck Value: 196 Lab Results-Last 24 Hours 10/13/17 Range/Units 17:00 Sodium 138 (137-145) mmol/L Potassium 4.0 (3.5-5.1) mmol/L Chloride 93 L (98-107) mmol/L Carbon Dioxide 34 H (22-30) mmol/L Anion Gap 15.9 H (5-15) MEQ/L BUN 57 H (7-17) mg/dL Creatinine 1.76 H (0.52-1.04) mg/dL Estimated GFR 30.1 ML/MIN Glucose 155 H (74-106) mg/dL Calcium 9.1 (8.4-10.2) mg/dL Radiology Exams: Radiology Procedures Category Date Time Status CHEST 2 VIEWS (PA AND LAT) Stat Exams 10/12/17 17:55 Completed Assessment/Plan (1) Cellulitis Current Visit: Yes Status: Acute Onset Date: ~10/12/17 Qualifiers: Site of cellulitis: extremity Site of cellulitis of extremity: lower extremity Laterality: unspecified laterality Qualified Code(s): L03.119 - Cellulitis of unspecified part of limb Assessment & Plan: Chief Complaint Diagnosis cellulitis Allergies Allergy/AdvReac Type Severity Reaction Status Date / Time No Known Drug Allergies Allergy Verified 10/12/17 17:17 Vital Signs (Last 24 hours) Temp Pulse Resp BP Pulse Ox 10/14/17 11:49 98.6 F 18 127/59 95 10/14/17 08:00 98.5 F 76 20 148/67 96 10/14/17 07:12 98.7 F 79 16 126/58 96 10/14/17 04:00 98.7 F 79 16 126/58 96 10/14/17 00:00 98.2 F 70 46 H 126/58 97 10/13/17 20:00 98.2 F 81 16 140/65 98 10/13/17 15:42 98.3 F 70 20 129/60 98 10/13/17 12:24 80 20 129/58 97 Home Medications Medication Instructions Recorded Confirmed Last Taken Type Cyanocobalamin (Vitamin B-12) 1,000 mcg PO DAILY 10/12/17 10/12/17 Unknown History [B-12] Sildenafil Citrate [Sildenafil] 20 mg PO DAILY 10/12/17 10/12/17 10/12/17 09:00 History Current Medications Generic Name Dose Route Start Last Admin Trade Name Freq PRN Reason Stop Dose Admin Acetaminophen 650 mg 10/12/17 21:18 Tylenol 325 Mg PO 11/11/17 21:17 Q4H PRN PRN PAIN AND/OR FEVER Acetaminophen/Codeine Phosphate 1 tab 10/13/17 13:00 10/14/17 08:14 Tylenol #3 Tablet PO 11/11/17 23:31 1 tab Q6H PRN PRN Administration PAIN Alprazolam 0.5 mg 10/13/17 13:30 10/14/17 08:13 Xanax 0.5 Mg PO 11/12/17 13:29 0.5 mg BID DANIEL Administration Cyanocobalamin 1,000 mcg 10/13/17 13:30 10/14/17 08:17 Vitamin B-12 500 Mcg PO 11/12/17 13:29 1,000 mcg DAILY DAINEL Administration Device 1 10/15/17 20:30 Trough Drug Levels IJ 10/15/17 20:31 1XONLY ONE Dicyclomine HCl 10 mg 10/13/17 13:00 10/14/17 08:15 Bentyl 20 Mg PO 11/12/17 12:59 10 mg QID DANIEL Administration Gabapentin 400 mg 10/13/17 15:00 10/14/17 08:14 Neurontin 400 Mg PO 11/12/17 14:59 400 mg TID DANIEL Administration Gemfibrozil 600 mg 10/13/17 13:30 10/14/17 08:16 Lopid 600 Mg PO 11/12/17 13:29 600 mg DAILY DANIEL Administration Glimepiride 2 mg 10/13/17 13:30 10/14/17 08:15 Amaryl 2 Mg PO 11/12/17 13:29 2 mg BREAKFAST DANIEL Administration Vancomycin HCl 1 gm/ Sodium 250 mls @ 167 mls/hr 10/12/17 21:18 10/13/17 22: 07 Chloride IV 11/11/17 21:17 167 mls/hr Q24H DANIEL Administration Piperacillin Sod/Tazobactam 100 mls @ 200 mls/hr 10/13/17 12:00 10/14/17 11: 09 Sod 2.25 gm/ Dextrose IV 11/12/17 11:59 200 mls/hr Q6HT DANIEL Administration Metoprolol Succinate 100 mg 10/13/17 13:30 10/14/17 08:13 Toprol Xl 100 Mg PO 11/12/17 13:29 100 mg DAILY DANIEL Administration Patient Own Med ( 0 each 10/14/17 10:00 10/14/17 10:48 Sensipar) PO 11/13/17 09:59 1 each DAILY DANIEL Administration Patient Own Med ( 0 each 10/14/17 10:00 10/14/17 10:47 Sildenafil) PO 11/13/17 09:59 1 each TID DANIEL Administration Patient Own Med ( 0 each 10/14/17 10:00 10/14/17 10:47 Poly-Iron) PO 11/13/17 09:59 1 each DAILY DANIEL Administration Patient Own Med ( 0 each 10/14/17 10:00 10/14/17 10:47 Metolazone) PO 11/13/17 09:59 1 each Q48H DANIEL Administration Potassium Chloride 40 meq 10/13/17 17:00 10/14/17 08:13 Klor Con 10 Meq PO 11/12/17 16:59 40 meq QID DANIEL Administration Rivaroxaban 15 mg 10/13/17 13:30 10/14/17 08:11 Xarelto 10 Mg Tablet PO 11/12/17 13:29 15 mg DAILY DANIEL Administration Silver Sulfadiazine 1 gm 10/13/17 13:30 10/14/17 10:59 Silvadene 50 Gm TP 11/12/17 13:29 Not Given BID DANIEL Torsemide 20 mg 10/13/17 13:00 10/14/17 08:16 Demadex 20 Mg PO 11/12/17 12:59 20 mg TID DIURETIC DANIEL Administration Discontinued Medications Generic Name Dose Route Start Last Admin Trade Name Freq PRN Reason Stop Dose Admin Acetaminophen/Codeine Phosphate 1 tab 10/12/17 23:32 10/13/17 08:25 Tylenol #3 Tablet PO 11/11/17 23:31 1 tab Q8H PRN PRN Administration PAIN Furosemide 40 mg 10/12/17 17:54 10/12/17 18:24 Lasix 40 Mg/4 Ml IV 10/12/17 17:55 40 mg STAT ONE Administration Furosemide Confirm 10/12/17 18:11 Lasix 40 Mg/4 Ml Administered 10/12/17 18:12 Dose 40 mg .ROUTE .STK-MED ONE Piperacillin Sod/Tazobactam Sod 3.375 gm in 100 mls @ 200 mls/hr 10/13/17 00: 00 10/13/17 05:46 Zosyn 3.375gm/100 Ml D5w IV 11/12/17 00:00 200 mls/hr Q6HT DANIEL Administration Vancomycin HCl Confirm 10/12/17 22:37 Vancomycin 1gm/ Ns 250ml Administered 10/12/17 22:38 Dose 250 mls @ ud IV .STK-MED ONE Potassium Chloride 20 meq in 100 mls @ 50 mls/hr 10/13/17 07:00 10/13/17 09: 54 Potassium Chloride 20 Meq In Water 100ml IV 10/13/17 10:59 50 mls/hr Q2H DANIEL Administration Sodium Chloride 500 mls @ 50 mls/hr 10/13/17 07:30 10/13/17 07:31 Sodium Chloride 0.9% 500 Ml IV 10/13/17 23:00 50 mls/hr .Q10H DANIEL Administration Miscellaneous Information 1 each 10/13/17 13:45 Medication Intervention PO 11/12/17 13:44 .RN TO CHECK ON DANIEL Miscellaneous Information 1 each 10/13/17 13:45 Medication Intervention PO 11/12/17 13:44 .RN TO CHECK ON DANIEL Miscellaneous Information 1 each 10/13/17 13:45 Medication Intervention PO 11/12/17 13:44 .RN TO CHECK ON DANIEL Non-Formulary Medication 1 each 10/13/17 14:33 10/13/17 16:15 Pharmacy Dosing Required: Vancomycin IV 10/13/17 14:34 1 each STAT ONE Administration Non-Formulary Medication 1 each 10/13/17 14:33 10/13/17 16:15 Pharmacy Dosing Request 10/13/17 14:34 1 each STAT ONE Administration Pioglitazone HCl 30 mg 10/13/17 13:30 10/13/17 13:23 Actos 30 Mg PO 11/12/17 13:29 30 mg DAILY DANIEL Administration Potassium Chloride 40 meq 10/13/17 10:30 10/13/17 09:55 Klor Con 10 Meq PO 10/13/17 10:31 40 meq ONCE ONE Administration Potassium Chloride 40 meq 10/13/17 06:56 10/13/17 07:23 Klor Con 10 Meq PO 10/13/17 06:57 40 meq STAT ONE Administration Potassium Chloride Confirm 10/13/17 14:13 Klor Con 10 Meq Administered 10/13/17 14:14 Dose 40 meq PO .STK-MED ONE Intake & Output (Last 24 hours) 10/12/17 10/13/17 10/14/17 10/15/17 11:59 11:59 11:59 11:59 Intake Total 1772 2520 Output Total 1550 2100 Balance 222 420 Weight 106.7 kg 106.7 kg Microbiology Results (Last 24 hours) 10/14/17 11:17 Foot - Right Bottom Wound Culture - Pending 10/14/17 10:28 Blood Blood Culture Gram Stain - Pending 10/14/17 10:28 Blood Blood Culture - Pending Laboratory Results (Last 24 hours) 10/13/17 17:00 Sodium 138 Potassium 4.0 Chloride 93 L Carbon Dioxide 34 H Anion Gap 15.9 H BUN 57 H Creatinine 1.76 H Estimated GFR 30.1 Glucose 155 H Calcium 9.1 Orders (Last 24 hours) Category Date Time Status ACCUCHECK [Accucheck] Q6H Care 10/13/17 18:00 Active BLOOD CULTURE Routine Lab 10/14/17 10:28 Received BMP Routine Lab 10/13/17 17:00 Completed CULTURE,WOUND Routine Lab 10/14/17 11:17 Received Vancomycin, Trough Urgent Lab 10/15/17 20:30 Ordered Alprazolam 0.5 mg [xanAX 0.5 MG] Med 10/13/17 13:30 Active 0.5 mg PO BID Codeine Phosphate/APAP #3 [Tylenol #3 Tablet] Med 10/13/17 13:00 Active 1 tab PO Q6H PRN PRN Cyanocobalamin 500 Mcg [Vitamin B-12 500 MCG] Med 10/13/17 13:30 Active 1,000 mcg PO DAILY Dicyclomine HCl 20 mg [Bentyl 20 mg] Med 10/13/17 13:00 Active 10 mg PO QID Gabapentin 400 mg [Neurontin 400 MG] Med 10/13/17 15:00 Active 400 mg PO TID Gemfibrozil 600 mg [Lopid 600 mg] Med 10/13/17 13:30 Active 600 mg PO DAILY Glimepiride 2 mg [Amaryl 2 MG] Med 10/13/17 13:30 Active 2 mg PO BREAKFAST Medication Intervention Med 10/13/17 13:45 Discontinued 1 each PO .RN TO CHECK ON Medication Intervention Med 10/13/17 13:45 Discontinued 1 each PO .RN TO CHECK ON Medication Intervention Med 10/13/17 13:45 Discontinued 1 each PO .RN TO CHECK ON Metoprolol Succinate 100 mg [Toprol Xl 100 MG] Med 10/13/17 13:30 Active 100 mg PO DAILY Patient Own Med [Patient Own Medication] Med 10/14/17 10:00 Active 0 each PO DAILY Patient Own Med [Patient Own Medication] Med 10/14/17 10:00 Active 0 each PO DAILY Patient Own Med [Patient Own Medication] Med 10/14/17 10:00 Active 0 each PO Q48H Patient Own Med [Patient Own Medication] Med 10/14/17 10:00 Active 0 each PO TID Pharmacy Dose Request: Vancomy [Pharmacy Dosing Med 10/13/17 14:33 Discontinued Required: Vancomycin] 1 each IV STAT ONE Pharmacy Dosing Request Med 10/13/17 14:33 Discontinued 1 each MC STAT ONE Pioglitazone 30 mg [Actos 30 MG] Med 10/13/17 13:30 Discontinued 30 mg PO DAILY Piperacillin/Tazobactam [Zosyn 2.25 GM] 2.25 gm Med 10/13/17 12:00 Active D5w 100 ml Mini-Bag Plus [Dextrose 5%/Water IV Soln. 100ML PLUS BAG] 100 ml IV Q6HT Potassium Chloride 10 Meq Tab* [Klor Con 10 MEQ] Med 10/13/17 14:13 Discontinued 40 meq PO .STK-MED ONE Potassium Chloride 10 Meq Tab* [Klor Con 10 MEQ] Med 10/13/17 17:00 Active 40 meq PO QID Rivaroxaban 10 mg Tablet [Xarelto 10 mg Tablet] Med 10/13/17 13:30 Active 15 mg PO DAILY Silver Sulfadiazine 50 gm [Silvadene 50 gm] Med 10/13/17 13:30 Active 1 gm TP BID Therapuetic Drug Level Monitor [Trough Drug Levels] Med 10/15/17 20:30 Once 1 IJ 1XONLY ONE Torsemide 20 mg [Demadex 20 mg] Med 10/13/17 13:00 Active 20 mg PO TID DIURETIC Patient Care Notes (Last 24 hours) 10/14/17 10:14 Nursing Note by Tiana Dixon dressings to both lower legs removed culture obtained by lake rn from small open area on right lower leg. gauze fluff roll soaked with hibicleanse saline mixture wraps applied to both lower legs to soak Initialized on 10/14/17 10:14 - END OF NOTE 10/14/17 08:27 Nursing Note by Cassidy Lew pre op check list cancelled documentation on the incorrect pt. Initialized on 10/14/17 08:27 - END OF NOTE 10/13/17 18:29 Nursing Note by Tiana Dixon cellulitis noted to both lower extremities with the left worse than the right. weeping fluid noted in both extremities thick build up of tissue noted to both extremities with some yellow slothing noted hibicleanse soaks x 15min then cleansed with hibiclense and barrier cream applied to both extremities. slight amount of silvadene cream applied to the inner left ankle. 6 nonstick telfas applied to the left leg and 4 applied to the right leg then wrapped with fluff gauze and 6in elastic bandage. pt was encouraged to elevated her legs and reported she would later. Initialized on 10/13/17 18:29 - END OF NOTE 10/13/17 12:56 Nursing Note by Ursula Roper Dr called back with new orders to resume home meds. Initialized on 10/13/17 12:56 - END OF NOTE 10/13/17 12:49 Nursing Note by Ursula Roper Dr via answering service. Initialized on 10/13/17 12:49 - END OF NOTE 10/13/17 12:30 (created 10/13/17 12:35) Nursing Note by Ursula Roper Dr via answering service concerning pt's home meds. Initialized on 10/13/17 12:35 - END OF NOTE Code(s): L03.90 - CELLULITIS, UNSPECIFIED (2) Failure of outpatient treatment Current Visit: Yes Status: Acute Onset Date: ~10/14/17 Code(s): Z78.9 - OTHER SPECIFIED HEALTH STATUS (3) Cellulitis and abscess of leg, except foot Current Visit: Yes Status: Acute Onset Date: ~10/12/17 Code(s): L03.119 - CELLULITIS OF UNSPECIFIED PART OF LIMB; L02.419 - CUTANEOUS ABSCESS OF LIMB, UNSPECIFIED (4) Cellulitis of left anterior lower leg Current Visit: Yes Status: Acute Onset Date: ~10/12/17 Code(s): L03.116 - CELLULITIS OF LEFT LOWER LIMB (5) Type 2 diabetes mellitus Current Visit: Yes Status: Chronic Qualifiers:
[2017-10-14] MEDS: MORPHINE SULFATE 2 MG INJ IV PRN (15:05)
[2017-10-14] MEDS: VANCOCIN 1 GM VIAL*** 1 GM in Sodium Chloride 0.9% 250 ML 250 ML IV SCH (20:46)
[2017-10-15] MEDS: Zosyn 2.25 GM 2.25 GM in Dextrose 5%/Water IV Soln. 100ML PLUS BAG 100 ML IV SCH ×4 (00:42→17:42)
[2017-10-15] MEDS: MORPHINE SULFATE 2 MG INJ IV PRN ×3 (04:51→16:56)
[2017-10-15 06:11] LABS: Hematocrit 25.5 % (35-47); Hemoglobin 8.3 gm/dl (12.0-16.0); Mean Cell Volume 94.8 fl (78-100); Mean Corpuscular Hgb Concent. 32.5 g/dl (32-36); Mean Platelet Volume 9.5 fl (6-9.5); Platelet Count 261 K/mm3 (150-450); Red Blood Count 2.69 M/mm3 (4.1-5.4); Red Cell Distribution Width 14.1 % (11.5-14.0); White Blood Count 6.1 K/mm3 (4.0-10.5)
[2017-10-15 06:14] LABS: Mean Corpuscular Hemoglobin 30.8 pg (26-32)
[2017-10-15 06:28] LABS: ANION GAP 15.1 MEQ/L (5-15); Creatinine 1 2.04 mg/dL (0.52-1.04); Potassium 4.8 mmol/L (3.5-5.1)
[2017-10-15] MEDS: Amaryl 2 MG PO SCH (07:45)
[2017-10-15] MEDS: Tylenol #3 Tablet PO PRN ×2 (07:45→21:37)
[2017-10-15] MEDS: Neurontin 400 MG PO SCH ×3 (08:54→21:40)
[2017-10-15] MEDS: XARELTO 10 MG TABLET PO SCH (08:54)
[2017-10-15] MEDS: Klor Con 10 MEQ PO SCH ×4 (08:54→21:36)
[2017-10-15] MEDS: xanAX 0.5 MG PO SCH ×2 (08:54→21:38)
[2017-10-15] MEDS: Toprol Xl 100 MG PO SCH (08:54)
[2017-10-15] MEDS: PATIENT OWN MEDICATION PO SCH ×5 (08:55→21:38)
[2017-10-15] MEDS: BENTYL 20 MG PO SCH ×4 (08:56→21:37)
[2017-10-15] MEDS: Vitamin B-12 500 MCG PO SCH (08:57)
[2017-10-15] MEDS: LOPID 600 MG PO SCH (08:57)
[2017-10-15] MEDS: DEMADEX 20 MG PO SCH ×3 (08:58→17:43)
[2017-10-15] MEDS ORDERED: TROUGH DRUG LEVELS IJ ONE (20:30)
[2017-10-15] MEDS: VANCOCIN 1 GM VIAL*** 1 GM in Sodium Chloride 0.9% 250 ML 250 ML IV SCH (21:33)
[2017-10-16] MEDS: Zosyn 2.25 GM 2.25 GM in Dextrose 5%/Water IV Soln. 100ML PLUS BAG 100 ML IV SCH ×4 (00:30→17:35)
[2017-10-16] MEDS: Tylenol #3 Tablet PO PRN ×3 (06:08→17:36)
[2017-10-16 06:36] LABS: BASOPHIL % 0.5 % (0.0-0.4); Basophil (Absolute #) 0.03 (0-0.4); Eosinophil % 5.9 % (0.00-5.0); Eosinophil (Absolute #) 0.33 (0-0.5); Granulocyte Absolute (ANC) 3.48 (1.4-6.9); Granulocytes % 61.9 % (36.0-66.0); Hematocrit 25.5 % (35-47); Hemoglobin 8.1 gm/dl (12.0-16.0); Lymphocyte (Absolute #) 1.17 (1.0-4.6); Lymphocytes % 20.8 % (24.0-44.0); Mean Corpuscular Hgb Concent. 31.8 g/dl (32-36); Mean Platelet Volume 10.3 fl (6-9.5); Monocyte (Absolute #) 0.61 (0.0-1.3); Monocytes % 10.9 % (0.0-12.0); Platelet Count 261 K/mm3 (150-450); Red Blood Count 2.63 M/mm3 (4.1-5.4); Red Cell Distribution Width 14.1 % (11.5-14.0); White Blood Count 5.6 K/mm3 (4.0-10.5)
[2017-10-16 06:39] LABS: Mean Corpuscular Hemoglobin 30.7 pg (26-32)
[2017-10-16 07:52] LABS: ANION GAP 12.9 MEQ/L (5-15); BILIRUBIN,TOTAL 0.4 mg/dL (0.2-1.3); Calcium 9.2 mg/dL (8.4-10.2); Potassium 5.5 mmol/L (3.5-5.1); Total Protein 7.8 g/dL (6.3-8.2)
[2017-10-16] MEDS: XARELTO 10 MG TABLET PO SCH (07:53)
[2017-10-16] MEDS: Amaryl 2 MG PO SCH (07:55)
[2017-10-16] MEDS: xanAX 0.5 MG PO SCH ×2 (07:55→22:30)
[2017-10-16] MEDS: Klor Con 10 MEQ PO SCH (07:55)
[2017-10-16] MEDS: BENTYL 20 MG PO SCH ×4 (07:56→22:30)
[2017-10-16] MEDS: Neurontin 400 MG PO SCH ×3 (07:56→22:30)
[2017-10-16] MEDS: PATIENT OWN MEDICATION PO SCH ×6 (07:56→22:32)
[2017-10-16] MEDS: Toprol Xl 100 MG PO SCH (07:56)
[2017-10-16] MEDS: Vitamin B-12 500 MCG PO SCH (07:58)
[2017-10-16] MEDS: DEMADEX 20 MG PO SCH ×3 (07:59→16:30)
[2017-10-16] MEDS: LOPID 600 MG PO SCH (08:00)
--- NOTE | 2017-10-16 08:55 | PCM.NOTE ---
Date and Time: 10/16/17 0854 Subjective Assessment: doing ok - Review of Systems Constitutional: No Fever, No Chills Eyes: No Symptoms Ears, Nose, & Throat: No Symptoms Respiratory: No Cough, No Short Of Breath Cardiac: No Chest Pain, No Edema, No Syncope Abdominal/Gastrointestinal: No Abdominal Pain, No Nausea, No Vomiting, No Diarrhea Genitourinary Symptoms: No Dysuria Musculoskeletal: No Back Pain, No Neck Pain Skin: No Rash Neurological: No Dizziness, No Focal Weakness, No Sensory Changes Psychological: No Symptoms Endocrine: No Symptoms Hematologic/Lymphatic: No Symptoms Immunological/Allergic: No Symptoms Objective Exam General Appearance: no apparent distress, alert Neurologic Exam: alert, oriented x 3, cooperative, normal mood/affect, nml cerebellar function, sensation nml, No motor deficits Skin Exam: normal color, warm, dry Eye Exam: PERRL, EOMI, eyes nml inspection Ears, Nose, Throat Exam: normal ENT inspection, pharynx normal, moist mucous membranes Neck Exam: normal inspection, non-tender, supple, full range of motion Respiratory Exam: normal breath sounds, lungs clear, No respiratory distress Cardiovascular Exam: regular rate/rhythm, normal heart sounds Gastrointestinal/Abdomen Exam: soft, No tenderness, No mass Extremity Exam: normal inspection, normal range of motion Back Exam: normal inspection, normal range of motion, No CVA tenderness, No vertebral tenderness Pelvic Exam: deferred Rectal Exam: deferred OBJECTIVE DATA Vital Signs: Vital Signs - 24 hr Temp Pulse Resp BP Pulse Ox 10/16/17 08:00 98.2 F 71 16 139/63 97 10/16/17 04:00 98.5 F 59 L 17 126/58 94 L 10/15/17 23:57 99.1 F 63 18 125/58 97 10/15/17 20:00 98.3 F 74 18 136/63 95 10/15/17 15:55 98.1 F 64 18 118/56 97 10/15/17 11:34 98.8 F 67 18 120/60 96 Pain Assessment - Last Documented Pain Intensity 5 Pain Scale Used 0-10 Pain Scale Intake and Output: Intake & Output 10/13/17 10/14/17 10/15/17 10/16/17 11:59 11:59 11:59 11:59 Intake Total 1772 2520 480 830 Output Total 1550 2100 850 Balance 222 420 -370 830 Weight 106.7 kg 106.7 kg Lab Results: Accuchecks Date 10/16/17 Date 10/15/17 Date 10/15/17 Date 10/15/17 Time 07:30 Time 22:00 Time 16:30 Time 11:30 Accucheck Value: 98 Accucheck Value: 217 Accucheck Value: 111 Accucheck Value: 289 Lab Results-Last 24 Hours 10/15/17 10/15/17 10/16/17 Range/Units 05:30 20:25 06:00 WBC 5.6 (4.0-10.5) K/mm3 RBC 2.63 L (4.1-5.4) M/mm3 Hgb 8.1 L (12.0-16.0) gm/dl Hct 25.5 L (35-47) % MCV 97.0 (78-100) fl MCH 30.7 (26-32) pg MCHC 31.8 L (32-36) g/dl RDW 14.1 H (11.5-14.0) % Plt Count 261 (150-450) K/mm3 MPV 10.3 H (6-9.5) fl Gran % 61.9 (36.0-66.0) % Eos # (Auto) 0.33 (0-0.5) Absolute Lymphs (auto) 1.17 (1.0-4.6) Absolute Monos (auto) 0.61 (0.0-1.3) Lymphocytes % 20.8 L (24.0-44.0) % Monocytes % 10.9 (0.0-12.0) % Eosinophils % 5.9 H (0.00-5.0) % Basophils % 0.5 (0.0-0.4) % Absolute Granulocytes 3.48 (1.4-6.9) Basophils # 0.03 (0-0.4) Sodium (137-145) mmol/L Potassium (3.5-5.1) mmol/L Chloride (98-107) mmol/L Carbon Dioxide (22-30) mmol/L Anion Gap (5-15) MEQ/L BUN (7-17) mg/dL Creatinine (0.52-1.04) mg/dL Estimated GFR ML/MIN Glucose (74-106) mg/dL Hemoglobin A1c 6.12 H (4.5-6.0) % Calcium (8.4-10.2) mg/dL Total Bilirubin (0.2-1.3) mg/dL AST (14-36) U/L ALT (0-35) U/L Alkaline Phosphatase (38-126) U/L Serum Total Protein (6.3-8.2) g/dL Albumin (3.5-5.0) g/dL Vancomycin Trough 19.63 (10-20) ug/mL 10/16/17 Range/Units 06:00 WBC (4.0-10.5) K/mm3 RBC (4.1-5.4) M/mm3 Hgb (12.0-16.0) gm/dl Hct (35-47) % MCV (78-100) fl MCH (26-32) pg MCHC (32-36) g/dl RDW (11.5-14.0) % Plt Count (150-450) K/mm3 MPV (6-9.5) fl Gran % (36.0-66.0) % Eos # (Auto) (0-0.5) Absolute Lymphs (auto) (1.0-4.6) Absolute Monos (auto) (0.0-1.3) Lymphocytes % (24.0-44.0) % Monocytes % (0.0-12.0) % Eosinophils % (0.00-5.0) % Basophils % (0.0-0.4) % Absolute Granulocytes (1.4-6.9) Basophils # (0-0.4) Sodium 137 (137-145) mmol/L Potassium 5.5 H (3.5-5.1) mmol/L Chloride 99 (98-107) mmol/L Carbon Dioxide 31 H (22-30) mmol/L Anion Gap 12.9 (5-15) MEQ/L BUN 57 H (7-17) mg/dL Creatinine 2.00 H (0.52-1.04) mg/dL Estimated GFR 26.0 ML/MIN Glucose 111 H (74-106) mg/dL Hemoglobin A1c (4.5-6.0) % Calcium 9.2 (8.4-10.2) mg/dL Total Bilirubin 0.40 (0.2-1.3) mg/dL AST 86 H (14-36) U/L ALT 17 (0-35) U/L Alkaline Phosphatase 99 (38-126) U/L Serum Total Protein 7.8 (6.3-8.2) g/dL Albumin 4.0 (3.5-5.0) g/dL Vancomycin Trough (10-20) ug/mL Multi-Disciplinary Progress Notes: Multi-Disciplinary Progress Notes 10/15/17 17:47 Physical Therapy Note by Rebeka Lobato RECEIVED ORDER FOR THERAPY INTERVENTION FOR FUNCTIONAL STRENGTHENING IN ADDITION TO WOUND CARE/EDEMA CONTROL BOTH LOWER LEGS AND FEET. WILL INCORPORATE ACTIVITY TOLERATED. LEG PAIN AND AT RISK PRESSURE AREA ON THE HEEL OF THE LEFT FOOT HINDER AGGRESSIVE ACTIVITY AT PRESENT. Initialized on 10/15/17 17:47 - END OF NOTE 10/15/17 14:43 Pharmacy Note by Dandy Waldrop Wound culture growing gram negative. Recommend stopping Vancomycin if not needed. Patient is on Zosyn iv for gram negative coverage. Initialized on 10/15/17 14:43 - END OF NOTE 10/15/17 14:32 Case Management Note by Kim Funes SPOKE WITH PATIENT THIS AM, PATIENT FILLED OUT [facility] REFERRAL FORM. THIS FORM AND INFORMATION WAS FAXED TO [facility]. I NOTIFIED [facility] OF REFERRAL PER [employer]. WILL SEND DC PAPERWORK TO THEM UPON DC AND ALSO NOTIFY THEM OF DC VIA [employer] WHEN THAT OCCURS. PATIENT PLANS TO DO SWINGBED FOR CONT'D ANTIBIOTIC THERAPY AND WOUND CARE PRIOR TO DC HOME. NO NEW NEEDS IDENTIFIED AT THIS TIME Initialized on 10/15/17 14:32 - END OF NOTE Assessment/Plan (1) Cellulitis Current Visit: Yes Status: Acute Onset Date: ~10/12/17 Qualifiers: Site of cellulitis: extremity Site of cellulitis of extremity: lower extremity Laterality: unspecified laterality Qualified Code(s): L03.119 - Cellulitis of unspecified part of limb Code(s): L03.90 - CELLULITIS, UNSPECIFIED (2) Failure of outpatient treatment Current Visit: Yes Status: Acute Onset Date: ~10/14/17 Code(s): Z78.9 - OTHER SPECIFIED HEALTH STATUS (3) Cellulitis and abscess of leg, except foot Current Visit: Yes Status: Acute Onset Date: ~10/12/17 Code(s): L03.119 - CELLULITIS OF UNSPECIFIED PART OF LIMB; L02.419 - CUTANEOUS ABSCESS OF LIMB, UNSPECIFIED (4) Cellulitis of left anterior lower leg Current Visit: Yes Status: Acute Onset Date: ~10/12/17 Code(s): L03.116 - CELLULITIS OF LEFT LOWER LIMB (5) Type 2 diabetes mellitus Current Visit: Yes Status: Chronic Qualifiers:
[2017-10-16] MEDS: MORPHINE SULFATE 2 MG INJ IV PRN (16:26)
[2017-10-16] MEDS ORDERED: NovoLOG Insulin SQ PRN (22:19)
[2017-10-17] MEDS: Tylenol #3 Tablet PO PRN ×2 (00:39→06:44)
[2017-10-17] MEDS: Zosyn 2.25 GM 2.25 GM in Dextrose 5%/Water IV Soln. 100ML PLUS BAG 100 ML IV SCH ×2 (00:39→06:12)
[2017-10-17 06:27] LABS: ANION GAP 15.6 MEQ/L (5-15); Calcium 9.1 mg/dL (8.4-10.2); Creatinine 1 2.12 mg/dL (0.52-1.04); Potassium 4.7 mmol/L (3.5-5.1)
[2017-10-17 07:15] VITALS: BP 137/64; PULSE 67; O2SAT 97
[2017-10-17] MEDS: Amaryl 2 MG PO SCH (08:01)
[2017-10-17] MEDS: XARELTO 10 MG TABLET PO SCH (09:21)
[2017-10-17] MEDS: LOPID 600 MG PO SCH (09:22)
[2017-10-17] MEDS: xanAX 0.5 MG PO SCH (09:22)
[2017-10-17] MEDS: DEMADEX 20 MG PO SCH (09:22)
[2017-10-17] MEDS: Toprol Xl 100 MG PO SCH (09:22)
[2017-10-17] MEDS: BENTYL 20 MG PO SCH (09:22)
[2017-10-17] MEDS: Neurontin 400 MG PO SCH (09:22)
[2017-10-17] MEDS: PATIENT OWN MEDICATION PO SCH ×3 (09:23→09:24)
[2017-10-17] MEDS: Vitamin B-12 500 MCG PO SCH (09:24)
[2017-10-20] MEDS ORDERED: Klor Con 10 MEQ PO SCH (10:00)
== END 2017-10-17 11:00 | disposition swing bed (61) | DRG 603 ==
LOC: ED 16:42 → MED SURG 21:12 → OBSVTOIN 10-14 12:27
PROVIDERS: ADMIT General Practice; ATTEND General Practice
DX: L03.116 Cellulitis of left lower limb (principal); L03.115 Cellulitis of right lower limb; E87.6 Hypokalemia; L03.90 Cellulitis, unspecified; E78.00 Pure hypercholesterolemia, unspecified; I12.9 Hypertensive chronic kidney disease with stage 1 through stage 4 chronic kidney disease, or unspecified chronic kidney disease; N18.9 Chronic kidney disease, unspecified; E78.5 Hyperlipidemia, unspecified; G62.9 Polyneuropathy, unspecified; Z86.718 Personal history of other venous thrombosis and embolism; I10 Essential (primary) hypertension; I34.0 Nonrheumatic mitral (valve) insufficiency; E11.9 Type 2 diabetes mellitus without complications; K21.9 Gastro-esophageal reflux disease without esophagitis; L02.416 Cutaneous abscess of left lower limb; Z78.9 Other specified health status; N28.9 Disorder of kidney and ureter, unspecified; F32.9 Major depressive disorder, single episode, unspecified; I48.91 Unspecified atrial fibrillation; Z79.01 Long term (current) use of anticoagulants; Z79.899 Other long term (current) drug therapy; I50.9 Heart failure, unspecified
CPT/HCPCS: 36000; 36415; 71046; 80048; 80053; 80202; 83036; 83605; 83735; 83880; 84484; 85025; 85027; 87040; 87070; 87077; 87186; 93005; 93041; 93268; 96374; 99285; J1940; J2270; J2543; J3370; J3480; A9270-GY; G0378

== ENCOUNTER 2017-10-17 10:22 | Inpatient (IN) | payer MEDICARE ==
[2017-10-17] MEDS ORDERED: PATIENT OWN MEDICATION PO SCH (11:36)
[2017-10-17] MEDS ORDERED: MORPHINE SULFATE 2 MG INJ IV PRN (11:36)
[2017-10-17] MEDS ORDERED: Actos 30 MG PO SCH (11:36)
[2017-10-17] MEDS: DEMADEX 20 MG PO SCH ×2 (12:14→16:52)
[2017-10-17] MEDS: Zosyn 2.25 GM 2.25 GM in Dextrose 5%/Water IV Soln. 100ML PLUS BAG 100 ML IV SCH ×2 (12:14→18:06)
[2017-10-17] MEDS: BENTYL 20 MG PO SCH ×3 (12:14→22:35)
[2017-10-17] MEDS: PATIENT OWN MEDICATION PO SCH ×2 (15:13→22:36)
[2017-10-17] MEDS: Neurontin 400 MG PO SCH ×2 (15:19→22:34)
[2017-10-17] MEDS: Tylenol #3 Tablet PO PRN ×2 (15:22→22:35)
[2017-10-17] MEDS: xanAX 0.5 MG PO SCH (22:34)
[2017-10-18] MEDS: Zosyn 2.25 GM 2.25 GM in Dextrose 5%/Water IV Soln. 100ML PLUS BAG 100 ML IV SCH ×5 (00:33→23:24)
[2017-10-18] MEDS: Amaryl 2 MG PO SCH (07:54)
[2017-10-18] MEDS: Neurontin 400 MG PO SCH ×3 (09:19→22:57)
[2017-10-18] MEDS: Vitamin B-12 500 MCG PO SCH (09:20)
[2017-10-18] MEDS: xanAX 0.5 MG PO SCH ×2 (09:20→22:57)
[2017-10-18] MEDS: XARELTO 10 MG TABLET PO SCH (09:20)
[2017-10-18] MEDS: DEMADEX 20 MG PO SCH ×3 (09:20→16:38)
[2017-10-18] MEDS: BENTYL 20 MG PO SCH ×4 (09:20→22:57)
[2017-10-18] MEDS: Toprol Xl 100 MG PO SCH (09:20)
[2017-10-18] MEDS: LOPID 600 MG PO SCH (09:20)
[2017-10-18] MEDS: PATIENT OWN MEDICATION PO SCH ×6 (09:21→22:57)
[2017-10-18] MEDS ORDERED: Aplisol ID SCH (10:00)
--- NOTE | 2017-10-18 16:08 | PROG NOTE ---
DATE: 10/18/2017 Chart is reviewed and events noted. At the time of this evaluation the patient is sitting comfortably in a chair. She denies any new complaints. PHYSICAL EXAMINATION: VITAL SIGNS: Blood pressure 134/63, heart rate 82, respiratory rate 20, temperature 97.9F. Oxygen saturation 97% on room air. HEENT: Pallor is present. No icterus is noted. NECK: No JVD is present. CVS: S1, S2 present. RESPIRATORY: Breath sounds are bilaterally clear to auscultation. ABDOMEN: Obese, soft, nontender. NEURO: She is alert, awake, answers simple questions. EXTREMITIES: Wraps on bilateral lower extremities. Feet are erythematous. LABORATORY DATA AND TESTS: There were no new labs. Medications were reviewed. ASSESSMENT: A 71 year old woman with impression: 1) Cellulitis (bilateral lower extremities). 2) History of hypertension/congestive heart failure. 3) Coronary artery disease. 4) Diabetes mellitus. 5) Chronic renal insufficiency. 6) Chronic anemia. 7) History of atrial fibrillation. 8) Anxiety. PLAN: Continue wound care/wrapping of bilateral lower extremities per PT. Continue broad spectrum IV antibiotics. Continue to follow CBC and electrolytes. The plan was discussed with the patient. She seems to be in understanding and agreement.
[2017-10-18] MEDS: Tylenol #3 Tablet PO PRN (19:49)
[2017-10-19] MEDS: Zosyn 2.25 GM 2.25 GM in Dextrose 5%/Water IV Soln. 100ML PLUS BAG 100 ML IV SCH ×4 (05:46→23:22)
[2017-10-19 06:15] LABS: BASOPHIL % 0.6 % (0.0-0.4); Basophil (Absolute #) 0.04 (0-0.4); Eosinophil % 4.3 % (0.00-5.0); Eosinophil (Absolute #) 0.27 (0-0.5); Granulocyte Absolute (ANC) 4.43 (1.4-6.9); Hematocrit 24.7 % (35-47); Lymphocyte (Absolute #) 0.77 (1.0-4.6); Lymphocytes % 12.3 % (24.0-44.0); Mean Cell Volume 94.6 fl (78-100); Mean Corpuscular Hgb Concent. 32.4 g/dl (32-36); Mean Platelet Volume 10.5 fl (6-9.5); Monocyte (Absolute #) 0.74 (0.0-1.3); Monocytes % 11.8 % (0.0-12.0); Platelet Count 290 K/mm3 (150-450); Red Blood Count 2.61 M/mm3 (4.1-5.4); Red Cell Distribution Width 13.6 % (11.5-14.0); White Blood Count 6.3 K/mm3 (4.0-10.5)
[2017-10-19 06:26] LABS: ANION GAP 15.6 MEQ/L (5-15); Calcium 8.9 mg/dL (8.4-10.2); Creatinine 1 1.99 mg/dL (0.52-1.04); Potassium 3.2 mmol/L (3.5-5.1)
[2017-10-19 06:29] LABS: Mean Corpuscular Hemoglobin 30.6 pg (26-32)
[2017-10-19] MEDS: Amaryl 2 MG PO SCH (08:21)
[2017-10-19] MEDS: TYLENOL 325 MG PO PRN ×2 (08:24→15:20)
[2017-10-19] MEDS: Neurontin 400 MG PO SCH ×3 (10:24→20:50)
[2017-10-19] MEDS: BENTYL 20 MG PO SCH ×4 (10:24→20:49)
[2017-10-19] MEDS: Vitamin B-12 500 MCG PO SCH (10:24)
[2017-10-19] MEDS: XARELTO 10 MG TABLET PO SCH (10:24)
[2017-10-19] MEDS: Toprol Xl 100 MG PO SCH (10:24)
[2017-10-19] MEDS: xanAX 0.5 MG PO SCH ×2 (10:24→20:50)
[2017-10-19] MEDS: LOPID 600 MG PO SCH (10:25)
[2017-10-19] MEDS: DEMADEX 20 MG PO SCH ×3 (10:25→17:25)
[2017-10-19] MEDS: PATIENT OWN MEDICATION PO SCH ×5 (10:25→20:51)
[2017-10-19] MEDS: NovoLOG Insulin SQ PRN (13:13)
[2017-10-19] MEDS: Tylenol #3 Tablet PO PRN (20:01)
[2017-10-20] MEDS: Zosyn 2.25 GM 2.25 GM in Dextrose 5%/Water IV Soln. 100ML PLUS BAG 100 ML IV SCH ×4 (05:36→22:58)
[2017-10-20] MEDS: Amaryl 2 MG PO SCH (07:56)
[2017-10-20] MEDS: Tylenol #3 Tablet PO PRN ×3 (09:38→22:55)
[2017-10-20] MEDS: XARELTO 10 MG TABLET PO SCH (09:39)
[2017-10-20] MEDS: Toprol Xl 100 MG PO SCH (09:40)
[2017-10-20] MEDS: Klor Con 10 MEQ PO SCH ×4 (09:40→20:52)
[2017-10-20] MEDS: xanAX 0.5 MG PO SCH ×2 (09:40→20:54)
[2017-10-20] MEDS: BENTYL 20 MG PO SCH ×4 (09:40→20:53)
[2017-10-20] MEDS: Neurontin 400 MG PO SCH ×3 (09:40→20:53)
[2017-10-20] MEDS: LOPID 600 MG PO SCH (09:41)
[2017-10-20] MEDS: Vitamin B-12 500 MCG PO SCH (09:41)
[2017-10-20] MEDS: DEMADEX 20 MG PO SCH ×3 (09:41→16:56)
[2017-10-20] MEDS: PATIENT OWN MEDICATION PO SCH ×6 (09:42→20:54)
[2017-10-20] MEDS: NovoLOG Insulin SQ PRN (21:12)
[2017-10-21] MEDS: Zosyn 2.25 GM 2.25 GM in Dextrose 5%/Water IV Soln. 100ML PLUS BAG 100 ML IV SCH ×4 (05:07→23:31)
[2017-10-21] MEDS: Tylenol #3 Tablet PO PRN ×3 (05:45→20:50)
[2017-10-21] MEDS: Amaryl 2 MG PO SCH (07:52)
[2017-10-21] MEDS: Klor Con 10 MEQ PO SCH ×4 (10:10→21:04)
[2017-10-21] MEDS: Neurontin 400 MG PO SCH ×3 (10:10→21:04)
[2017-10-21] MEDS: BENTYL 20 MG PO SCH ×4 (10:10→21:03)
[2017-10-21] MEDS: Toprol Xl 100 MG PO SCH (10:10)
[2017-10-21] MEDS: xanAX 0.5 MG PO SCH ×2 (10:10→21:05)
[2017-10-21] MEDS: XARELTO 10 MG TABLET PO SCH (10:10)
[2017-10-21] MEDS: DEMADEX 20 MG PO SCH ×3 (10:11→17:11)
[2017-10-21] MEDS: LOPID 600 MG PO SCH (10:11)
[2017-10-21] MEDS: Vitamin B-12 500 MCG PO SCH (10:11)
[2017-10-21] MEDS: PATIENT OWN MEDICATION PO SCH ×5 (10:12→21:04)
--- NOTE | 2017-10-21 11:32 | PROG NOTE ---
DATE: 10/19/2017 Chart is reviewed and events noted. At the time of this evaluation the patient is sitting comfortably in chair. She states she is eating and drinking okay, has been ambulated with her walker. She denies any new complaints, appears comfortable. PHYSICAL EXAMINATION: VITAL SIGNS: Blood pressure 128/60, heart rate 72, respiratory rate 20, temperature 98F. Oxygen saturation 98% on room air. HEENT: Pallor is present. No icterus is noted. NECK: No JVD is present. CVS: S1, S2 present. RESPIRATORY: Breath sounds are bilaterally diminished and clear to auscultation. ABDOMEN: Obese, soft, nontender. NEURO: She is alert, awake, answers simple questions. EXTREMITIES: Wraps on bilateral lower extremities. Feet are erythematous. LABORATORY DATA AND TESTS: Labs from today showed CBC with white blood cell of 6.3, hemoglobin 8, hematocrit 24.7, PLT 290,000. BMP showed potassium of 3.2. Bicarbonate 15.6, BUN 51, creatinine 1.99. Medications were reviewed. ASSESSMENT: A 71 year old woman with impression: 1) Cellulitis of bilateral lower extremities. 2) Hypertension/congestive heart failure. 3) Coronary artery disease. 4) Diabetes mellitus. 5) Chronic renal insufficiency. 6) Chronic anemia (stable hemoglobin and hematocrit). 7) History of atrial fibrillation. 8) Anxiety. PLAN: Continue broad spectrum IV antibiotics. Continue wound care/wrapping of bilateral lower extremities by PT. Continue to follow CBC and electrolytes. The plan was discussed with the patient. She seems to be in understanding and agreement.
--- NOTE | 2017-10-21 12:37 | PCM.NOTE ---
Date and Time: 10/21/17 1236 Subjective Assessment: doing better - Review of Systems Constitutional: No Fever, No Chills Eyes: No Symptoms Ears, Nose, & Throat: No Symptoms Respiratory: No Cough, No Short Of Breath Cardiac: No Chest Pain, No Edema, No Syncope Abdominal/Gastrointestinal: No Abdominal Pain, No Nausea, No Vomiting, No Diarrhea Genitourinary Symptoms: No Dysuria Musculoskeletal: No Back Pain, No Neck Pain Skin: No Rash Neurological: No Dizziness, No Focal Weakness, No Sensory Changes Psychological: No Symptoms Endocrine: No Symptoms Hematologic/Lymphatic: No Symptoms Immunological/Allergic: No Symptoms Objective Exam General Appearance: no apparent distress, alert Neurologic Exam: alert, oriented x 3, cooperative, normal mood/affect, nml cerebellar function, sensation nml, No motor deficits Skin Exam: normal color, warm, dry Eye Exam: PERRL, EOMI, eyes nml inspection Ears, Nose, Throat Exam: normal ENT inspection, pharynx normal, moist mucous membranes Neck Exam: normal inspection, non-tender, supple, full range of motion Respiratory Exam: normal breath sounds, lungs clear, No respiratory distress Cardiovascular Exam: regular rate/rhythm, normal heart sounds Gastrointestinal/Abdomen Exam: soft, No tenderness, No mass Extremity Exam: normal inspection, normal range of motion Back Exam: normal inspection, normal range of motion, No CVA tenderness, No vertebral tenderness Pelvic Exam: deferred Rectal Exam: deferred OBJECTIVE DATA Vital Signs: Vital Signs - 24 hr Temp Pulse Resp BP BP Pulse Ox 10/21/17 07:09 97.8 F 67 18 118/75 96 10/20/17 19:49 99.0 F 69 18 130/60 98 Pain Assessment - Last Documented Pain Intensity 5 Pain Scale Used 0-10 Pain Scale Intake and Output: Intake & Output 10/19/17 10/20/17 10/21/17 10/22/17 11:59 11:59 11:59 11:59 Intake Total 2230 2360 1860 Output Total 600 Balance 2230 1760 1860 Weight 107.2 kg Lab Results: Accuchecks Date 10/21/17 Date 10/20/17 Date 10/20/17 Time 07:30 Time 21:00 Time 16:30 Accucheck Value: 69 Accucheck Value: 243 Accucheck Value: 141 Multi-Disciplinary Progress Notes: Multi-Disciplinary Progress Notes 10/21/17 09:35 (created 10/21/17 11:11) Case Management Note by Vicky Armendariz REVIEWED DISCHARGE PLAN, CONTINUES TO PLAN TO RETURN HOME TO PRE EPISODIC LEVEL OF [facility]. WILL HAVE [facility] FOR ADDNL SUPPORT ON DISCHARGE. NO ADDNL NEEDS IDENTIFIED AT PRESENT. WILL FOLLOW. Initialized on 10/21/17 11:11 - END OF NOTE Assessment/Plan (1) Cellulitis Current Visit: Yes Status: Acute Onset Date: ~10/12/17 Qualifiers: Site of cellulitis of extremity: lower extremity Laterality: unspecified laterality Code(s): L03.90 - CELLULITIS, UNSPECIFIED (2) Cellulitis and abscess of leg, except foot Current Visit: Yes Status: Acute Onset Date: ~10/12/17 Code(s): L03.119 - CELLULITIS OF UNSPECIFIED PART OF LIMB; L02.419 - CUTANEOUS ABSCESS OF LIMB, UNSPECIFIED (3) Cellulitis of left anterior lower leg Current Visit: Yes Status: Acute Onset Date: ~10/12/17 Code(s): L03.116 - CELLULITIS OF LEFT LOWER LIMB (4) Failure of outpatient treatment Current Visit: Yes Status: Acute Onset Date: ~10/14/17 Code(s): Z78.9 - OTHER SPECIFIED HEALTH STATUS (5) Type 2 diabetes mellitus Current Visit: Yes Status: Chronic Qualifiers: 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
--- NOTE | 2017-10-21 13:18 | PROG NOTE ---
DATE: 10/20/2017 Chart is reviewed and events noted. At the time of this evaluation the patient is alert, awake, comfortable, still having mild discomfort in both legs (from wrapping). PHYSICAL EXAMINATION: VITAL SIGNS: Blood pressure 144/65, heart rate 73, respiratory rate 18, temperature 98F. Oxygen saturation 97 to 99%. HEENT: Pallor is present. No icterus is noted. NECK: No JVD is present. CVS: S1, S2 present. RESPIRATORY: Breath sounds are bilaterally diminished, clear to auscultation. ABDOMEN: Obese, soft, nontender. NEURO: She is alert, awake, answers simple questions. EXTREMITIES: Reveals wraps on bilateral lower extremities. LABORATORY DATA AND TESTS: There were no new labs today. Medications were reviewed. ASSESSMENT: A 71 year old woman with impression: 1) Cellulitis (bilateral lower extremities). 2) Hypertension/congestive heart failure. 3) Coronary artery disease. 4) Diabetes mellitus. 5) Chronic renal insufficiency. 6) Chronic anemia. 7) History of atrial fibrillation. 8) Anxiety. PLAN: Continue broad spectrum IV antibiotics, continue wound care/wrapping of bilateral lower extremities. The patient is going to have wrappings changed tomorrow. Continue to follow CBC and electrolytes. The plan was discussed with the patient. She seems to be in understanding and agreement.
[2017-10-21] MEDS: NovoLOG Insulin SQ PRN (21:59)
[2017-10-22] MEDS: Zosyn 2.25 GM 2.25 GM in Dextrose 5%/Water IV Soln. 100ML PLUS BAG 100 ML IV SCH ×4 (05:47→23:57)
[2017-10-22] MEDS: Tylenol #3 Tablet PO PRN ×3 (07:36→21:23)
[2017-10-22] MEDS: Amaryl 2 MG PO SCH (07:37)
[2017-10-22] MEDS: XARELTO 10 MG TABLET PO SCH (09:22)
[2017-10-22] MEDS: BENTYL 20 MG PO SCH ×4 (09:23→21:22)
[2017-10-22] MEDS: xanAX 0.5 MG PO SCH ×2 (09:23→21:23)
[2017-10-22] MEDS: Klor Con 10 MEQ PO SCH ×4 (09:23→21:21)
[2017-10-22] MEDS: Neurontin 400 MG PO SCH ×3 (09:23→21:22)
[2017-10-22] MEDS: PATIENT OWN MEDICATION PO SCH ×6 (09:24→21:24)
[2017-10-22] MEDS: Toprol Xl 100 MG PO SCH (09:24)
[2017-10-22] MEDS: LOPID 600 MG PO SCH (09:26)
[2017-10-22] MEDS: Vitamin B-12 500 MCG PO SCH (09:26)
[2017-10-22] MEDS: DEMADEX 20 MG PO SCH ×3 (09:27→16:55)
[2017-10-22] MEDS ORDERED: Ketamine HCl 50 MG/ML IJ ONE (16:18)
[2017-10-22] MEDS ORDERED: DIPRIVAN 200 MG/20 ML IV ONE (16:18)
[2017-10-22] MEDS: NovoLOG Insulin SQ PRN (21:56)
[2017-10-23] MEDS: Zosyn 2.25 GM 2.25 GM in Dextrose 5%/Water IV Soln. 100ML PLUS BAG 100 ML IV SCH ×2 (05:52→12:19)
[2017-10-23] MEDS: Tylenol #3 Tablet PO PRN ×3 (05:56→21:16)
[2017-10-23] MEDS: Amaryl 2 MG PO SCH (07:53)
[2017-10-23] MEDS: Klor Con 10 MEQ PO SCH ×4 (09:06→21:12)
[2017-10-23] MEDS: Toprol Xl 100 MG PO SCH (09:06)
[2017-10-23] MEDS: xanAX 0.5 MG PO SCH ×2 (09:07→21:11)
[2017-10-23] MEDS: BENTYL 20 MG PO SCH ×4 (09:07→21:11)
[2017-10-23] MEDS: XARELTO 10 MG TABLET PO SCH (09:07)
[2017-10-23] MEDS: Vitamin B-12 500 MCG PO SCH (09:08)
[2017-10-23] MEDS: PATIENT OWN MEDICATION PO SCH ×5 (09:09→21:12)
[2017-10-23] MEDS: LOPID 600 MG PO SCH (09:11)
[2017-10-23] MEDS: DEMADEX 20 MG PO SCH ×3 (09:11→16:12)
[2017-10-23] MEDS: Neurontin 400 MG PO SCH ×3 (09:11→21:12)
--- NOTE | 2017-10-23 11:51 | PCM.NOTE ---
Date and Time: 10/23/17 1150 Subjective Assessment: doing ok - Review of Systems Constitutional: No Fever, No Chills Eyes: No Symptoms Ears, Nose, & Throat: No Symptoms Respiratory: No Cough, No Short Of Breath Cardiac: No Chest Pain, No Edema, No Syncope Abdominal/Gastrointestinal: No Abdominal Pain, No Nausea, No Vomiting, No Diarrhea Genitourinary Symptoms: No Dysuria Musculoskeletal: No Back Pain, No Neck Pain Skin: No Rash Neurological: No Dizziness, No Focal Weakness, No Sensory Changes Psychological: No Symptoms Endocrine: No Symptoms Hematologic/Lymphatic: No Symptoms Immunological/Allergic: No Symptoms Objective Exam General Appearance: no apparent distress, alert Neurologic Exam: alert, oriented x 3, cooperative, normal mood/affect, nml cerebellar function, sensation nml, No motor deficits Skin Exam: normal color, warm, dry Eye Exam: PERRL, EOMI, eyes nml inspection Ears, Nose, Throat Exam: normal ENT inspection, pharynx normal, moist mucous membranes Neck Exam: normal inspection, non-tender, supple, full range of motion Respiratory Exam: normal breath sounds, lungs clear, No respiratory distress Cardiovascular Exam: regular rate/rhythm, normal heart sounds Gastrointestinal/Abdomen Exam: soft, No tenderness, No mass Extremity Exam: normal inspection, normal range of motion Back Exam: normal inspection, normal range of motion, No CVA tenderness, No vertebral tenderness Pelvic Exam: deferred Rectal Exam: deferred OBJECTIVE DATA Vital Signs: Vital Signs - 24 hr Temp Pulse Resp BP BP Pulse Ox 10/23/17 07:03 97.7 F 74 16 146/65 99 10/22/17 20:00 98.3 F 63 18 146/65 96 Pain Assessment - Last Documented Pain Intensity 2 Pain Scale Used 0-10 Pain Scale Intake and Output: Intake & Output 10/20/17 10/21/17 10/22/17 10/23/17 11:59 11:59 11:59 11:59 Intake Total 2360 1860 1440 1680 Output Total 600 Balance 1760 1860 1440 1680 Weight 107.2 kg Lab Results: Accuchecks Date 10/22/17 Date 10/22/17 Time 16:30 Accucheck Value: 208 Accucheck Value: 105 Accucheck Value: 211 Accucheck Value: 143 Assessment/Plan (1) Cellulitis Current Visit: Yes Status: Acute Onset Date: ~10/12/17 Qualifiers: Site of cellulitis of extremity: lower extremity Laterality: unspecified laterality Code(s): L03.90 - CELLULITIS, UNSPECIFIED (2) Cellulitis and abscess of leg, except foot Current Visit: Yes Status: Acute Onset Date: ~10/12/17 Code(s): L03.119 - CELLULITIS OF UNSPECIFIED PART OF LIMB; L02.419 - CUTANEOUS ABSCESS OF LIMB, UNSPECIFIED (3) Cellulitis of left anterior lower leg Current Visit: Yes Status: Acute Onset Date: ~10/12/17 Code(s): L03.116 - CELLULITIS OF LEFT LOWER LIMB (4) Failure of outpatient treatment Current Visit: Yes Status: Acute Onset Date: ~10/14/17 Code(s): Z78.9 - OTHER SPECIFIED HEALTH STATUS (5) Type 2 diabetes mellitus Current Visit: Yes Status: Chronic Qualifiers: Diabetes mellitus chcf insulin use: unspecified chcf insulin use status Diabetes mellitus complication status: with skin complications Diabetes mellitus complication detail: with other skin ulcer Qualified Code(s) : E11.622 - Type 2 diabetes mellitus with other skin ulcer; L98.499 - 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
[2017-10-23] MEDS: KEFLEX 500 MG PO SCH ×2 (16:09→21:11)
[2017-10-23] MEDS: NovoLOG Insulin SQ PRN (21:53)
[2017-10-24] MEDS: Tylenol #3 Tablet PO PRN ×2 (05:28→11:31)
[2017-10-24] MEDS: Amaryl 2 MG PO SCH (07:33)
[2017-10-24 07:42] VITALS: BP 134/62; PULSE 63; O2SAT 96
[2017-10-24] MEDS: XARELTO 10 MG TABLET PO SCH (09:40)
[2017-10-24] MEDS: Klor Con 10 MEQ PO SCH ×2 (09:40→13:06)
[2017-10-24] MEDS: Toprol Xl 100 MG PO SCH (09:40)
[2017-10-24] MEDS: Neurontin 400 MG PO SCH (09:40)
[2017-10-24] MEDS: Vitamin B-12 500 MCG PO SCH (09:41)
[2017-10-24] MEDS: LOPID 600 MG PO SCH (09:41)
[2017-10-24] MEDS: DEMADEX 20 MG PO SCH ×2 (09:41→13:08)
[2017-10-24] MEDS: KEFLEX 500 MG PO SCH ×2 (09:41→13:07)
[2017-10-24] MEDS: xanAX 0.5 MG PO SCH (09:41)
[2017-10-24] MEDS: BENTYL 20 MG PO SCH ×2 (09:41→13:07)
[2017-10-24] MEDS: PATIENT OWN MEDICATION PO SCH ×4 (09:42→09:43)
--- NOTE | 2017-10-24 10:16 | PCM.DS ---
Discharge Summary Date of Admission: 10/17/17 11:00 Admitting Physician: ANTHONY HARMAN Primary Care Provider: ANTHONY HARMAN Allergies Allergies No Known Drug Allergies Allergy (Verified 10/17/17 11:10) Hospital Summary - Hospital Course Hospital Course: Chief Complaint Diagnosis Deconditiong r/t BLE cellulitis Allergies Allergy/AdvReac Type Severity Reaction Status Date / Time No Known Drug Allergies Allergy Verified 10/17/17 11:10 Vital Signs (Last 24 hours) Temp Pulse Resp BP BP Pulse Ox 10/24/17 07:41 98.0 F 63 20 134/62 96 10/23/17 19:51 98.6 F 62 18 125/58 100 Home Medications Medication Instructions Recorded Confirmed Last Taken Type Cephalexin Mh 500 mg [Keflex 500 500 mg PO QID #28 capsule 10/24/17 Unknown Rx mg] Current Medications Generic Name Dose Route Start Last Admin Trade Name Freq PRN Reason Stop Dose Admin Acetaminophen 650 mg 10/17/17 11:36 10/19/17 15:20 Tylenol 325 Mg PO 11/11/17 21:17 650 mg Q4H PRN PRN Administration PAIN AND/OR FEVER Acetaminophen/Codeine Phosphate 1 tab 10/17/17 11:36 10/24/17 05:28 Tylenol #3 Tablet PO 11/11/17 23:31 1 tab Q6H PRN PRN Administration PAIN Alprazolam 0.5 mg 10/17/17 11:36 10/24/17 09:41 Xanax 0.5 Mg PO 11/12/17 13:29 0.5 mg BID DANIEL Administration Cephalexin HCl 500 mg 10/23/17 17:00 10/24/17 09:41 Keflex 500 Mg PO 11/22/17 16:59 500 mg QID DANIEL Administration Cyanocobalamin 1,000 mcg 10/17/17 11:36 10/24/17 09:41 Vitamin B-12 500 Mcg PO 11/12/17 13:29 1,000 mcg DAILY DANIEL Administration Dicyclomine HCl 10 mg 10/17/17 11:36 10/24/17 09:41 Bentyl 20 Mg PO 11/12/17 12:59 10 mg QID DANIEL Administration Gabapentin 400 mg 10/17/17 11:36 10/24/17 09:40 Neurontin 400 Mg PO 11/12/17 14:59 400 mg TID DANIEL Administration Gemfibrozil 600 mg 10/17/17 11:36 10/24/17 09:41 Lopid 600 Mg PO 11/12/17 13:29 600 mg DAILY DANIEL Administration Glimepiride 2 mg 10/17/17 11:36 10/24/17 07:33 Amaryl 2 Mg PO 11/12/17 13:29 2 mg BREAKFAST DANIEL Administration Insulin Aspart 0 unit 10/17/17 11:36 10/23/17 21:53 Novolog Insulin SQ 11/15/17 22:18 3 unit UD PRN Administration HYPERGLYCEMIA Metoprolol Succinate 100 mg 10/17/17 11:36 10/24/17 09:40 Toprol Xl 100 Mg PO 11/12/17 13:29 100 mg DAILY DANIEL Administration Patient Own Med ( 0 each 10/17/17 11:36 10/24/17 09:43 Sensipar) PO 11/13/17 09:59 1 each DAILY DANIEL Administration Patient Own Med ( 0 each 10/17/17 11:36 10/24/17 09:42 Sildenafil) PO 11/13/17 09:59 1 each TID DANIEL Administration Patient Own Med ( 0 each 10/17/17 11:36 10/24/17 09:42 Poly-Iron) PO 11/13/17 09:59 1 each DAILY DANIEL Administration Patient Own Med ( 0 each 10/18/17 10:00 10/24/17 09:42 Metolazone) PO 11/17/17 09:59 1 each Q48H DANIEL Administration Potassium Chloride 40 meq 10/20/17 10:00 10/24/17 09:40 Klor Con 10 Meq PO 11/19/17 09:59 40 meq QID DANIEL Administration Rivaroxaban 15 mg 10/17/17 11:36 10/24/17 09:40 Xarelto 10 Mg Tablet PO 11/12/17 13:29 15 mg DAILY DANIEL Administration Torsemide 20 mg 10/17/17 11:36 10/24/17 09:41 Demadex 20 Mg PO 11/12/17 12:59 20 mg TID DIURETIC DANIEL Administration Tuberculin PPD 5 unit 10/28/17 10:00 Aplisol ID 10/28/17 10:01 DAILY DANIEL Discontinued Medications Generic Name Dose Route Start Last Admin Trade Name Freq PRN Reason Stop Dose Admin Piperacillin Sod/Tazobactam 100 mls @ 200 mls/hr 10/17/17 11:36 10/23/17 12: 19 Sod 2.25 gm/ Dextrose IV 11/12/17 11:59 200 mls/hr Q6HT DANIEL Administration Ketamine HCl 25 mg 10/22/17 16:18 Ketamine Hcl 50 Mg/Ml IJ 10/22/17 16:19 .STK-MED ONE Morphine Sulfate 2 mg 10/17/17 11:36 Morphine Sulfate 2 Mg Inj IV 10/19/17 12:25 Q4H PRN PRN PAIN Propofol 200 mg 10/22/17 16:18 Diprivan 200 Mg/20 Ml IV 10/22/17 16:19 .STK-MED ONE Tuberculin PPD 5 unit 10/18/17 10:00 10/18/17 09:59 Aplisol ID 10/18/17 10:01 5 unit DAILY DANIEL Administration Intake & Output (Last 24 hours) 10/21/17 10/22/17 10/23/17 10/24/17 11:59 11:59 11:59 11:59 Intake Total 1860 1440 1680 810 Balance 1860 1440 1680 810 Weight 107.2 kg Orders (Last 24 hours) Category Date Time Status Discharge Routine Discharge 10/24/17 Ordered BMP Routine Lab 10/31/17 04:00 Ordered Cephalexin Mh 500 mg [Keflex 500 mg] Med 10/23/17 17:00 Active 500 mg PO QID Tuberculin,Purif.prot.deriv. [Aplisol] Med 10/28/17 10:00 Active 5 unit ID DAILY Patient Care Notes (Last 24 hours) 10/23/17 18:09 Physical Therapy Note by Rebeka Lobato WOUND CARE PROTOCAL WRITTEN FOR HOME HEALTH STAFF GUIDANCE IN CONTINUITY OF CARE. PATIENT TO D/C TO HOME TOMORROW. Initialized on 10/23/17 18:09 - END OF NOTE 10/23/17 12:40 (created 10/23/17 13:21) Case Management Note by Vicky Armendariz DR. ROUNDED AND EVALUATED, DISCUSSED PLAN OF CARE WITH PT. WILL PLAN FOR DISCHARGE TOMORROW. START ON PO ABX TODAY. WILL HAVE [facility] TO FOLLOW FOR DRESSING CHANGES ON DISCHARGE. DENIES ADDNL NEEDS AT PRESENT TIME. WILL FOLLOW. Initialized on 10/23/17 13:21 - END OF NOTE - Vitals & Intake/Output Vital Signs: Vital Signs Temperature 98.0 F 10/24/17 07:41 Pulse Rate 63 10/24/17 07:41 Respiratory Rate 20 10/24/17 07:41 Blood Pressure 134/62 10/24/17 07:41 O2 Sat by Pulse Oximetry 96 10/24/17 07:41 Intake & Output: Intake & Output 10/21/17 10/22/17 10/23/17 10/24/17 11:59 11:59 11:59 11:59 Intake Total 1860 1440 1680 810 Balance 1860 1440 1680 810 Weight 107.2 kg - Lab Result Diagrams: 10/19/17 05:25 10/19/17 05:25 Lab Results-Last 24 Hrs: Accuchecks Date 10/24/17 Date 10/23/17 Time 07:24 Accucheck Value: 89 Accucheck Value: 173 Accucheck Value: 153 Accucheck Value: 208 Micro Results-Entire Visit: Accuchecks Date 10/24/17 Date 10/23/17 Time 07:24 Accucheck Value: 89 Accucheck Value: 173 Accucheck Value: 153 Accucheck Value: 208 - Procedures and Test Procedures and Tests throughout Hospitalization: Therapy Orders & Screens 10/17/17 11:12 OT Eval and Treat ( Order) Comment: Consulting Provider: Physician Instructions: Reason For Exam: Evaluate: Yes Treat: Yes Reason for Evaluation: Deconditioning Diagnosis: Deconditioning r/t BLE cellulitis PT Eval & Treat ( Order) Reason for Eval:: Deconditioning r/t BLE cellulitis Diagnosis: Deconditiong r/t BLE cellulitis Discharge Exam General Appearance: no apparent distress, alert Neurologic Exam: alert, oriented x 3, cooperative, normal mood/affect, nml cerebellar function, sensation nml, No motor deficits Skin Exam: normal color, warm, dry Eye Exam: PERRL, EOMI, eyes nml inspection Ears, Nose, Throat Exam: normal ENT inspection, pharynx normal, moist mucous membranes Neck Exam: normal inspection, non-tender, supple, full range of motion Respiratory Exam: normal breath sounds, lungs clear, No respiratory distress Cardiovascular Exam: regular rate/rhythm, normal heart sounds Gastrointestinal/Abdomen Exam: soft, No tenderness, No mass Extremity Exam: normal inspection, normal range of motion Back Exam: normal inspection, normal range of motion, No CVA tenderness, No vertebral tenderness Pelvic Exam: deferred Rectal Exam: deferred Final Diagnosis/Problem List - Final Discharge Diagnosis/Problem (1) Cellulitis Current Visit: Yes Status: Acute Onset Date: ~10/12/17 (2) Cellulitis and abscess of leg, except foot Current Visit: Yes Status: Acute Onset Date: ~10/12/17 (3) Cellulitis of left anterior lower leg Current Visit: Yes Status: Acute Onset Date: ~10/12/17 (4) Failure of outpatient treatment Current Visit: Yes Status: Acute Onset Date: ~10/14/17 (5) Type 2 diabetes mellitus Current Visit: Yes Status: Chronic - Discharge Discharge Date: 10/24/17 Disposition: Home, Self-Care Condition: Stable Prescriptions: New Cephalexin Mh 500 mg [Keflex 500 mg] 500 mg PO QID #28 capsule Continue Gemfibrozil 600 mg [Lopid 600 mg] 600 mg PO DAILY ALPRAZolam [Xanax 0.5 mg] 0.5 mg PO BID Pioglitazone HCl [Actos] 30 mg PO DAILY Potassium Chloride 20 Meq [Klor-Con 20 MEQ] 40 meq PO QID Gabapentin [Neurontin] 400 mg PO TID Rivaroxaban [Xarelto] 15 mg PO DAILY Metoprolol Succinate 100 mg [Toprol Xl 100 MG] 100 mg PO DAILY Torsemide 20 mg PO TID metOLazone [Metolazone] 5 mg PO UD Glimepiride 2 mg PO DAILY Silver Sulfadiazine [Ssd] 1 gm TOP BID cephALEXin [Cephalexin] 500 mg PO QID Cinacalcet HCl [Sensipar] 30 mg PO DAILY Iron Ps Complex/B12/Folic Acid [Poly-Iron 150 Forte Capsule] 150 mg PO DAILY Dicyclomine HCl 20 mg [Bentyl 20 mg] 10 mg PO QID Acetaminophen with Codeine [Acetaminophen-Cod #3 Tablet] 1 each PO TID PRN PRN Reason: Pain Cyanocobalamin (Vitamin B-12) [B-12] 1,000 mcg PO DAILY Sildenafil Citrate [Sildenafil] 20 mg PO DAILY Instructions: Generalized Weakness (DC), Cellulitis (Skin Infection), Adult (DC ) Additional Instructions: [facility] WILL CALL YOU TO ARRANGE YOUR FIRST VISIT. YOU MAY REACH THEM AT [phone] FOR ANY NEEDS. Follow up with: ANTHONY HARMAN MD [Primary Care Provider] - 10/31/17 2:15 pm Forms: Discharge Instructions
[2017-10-24] MEDS: NovoLOG Insulin SQ PRN (11:42)
[2017-10-28] MEDS ORDERED: Aplisol ID SCH (10:00)
== END 2017-10-24 14:10 | disposition home or self-care (01) | DRG 603 ==
LOC: MED SURG 11:00
PROVIDERS: ADMIT General Practice; ATTEND General Practice
DX: L03.116 Cellulitis of left lower limb (principal); I13.0 Hypertensive heart and chronic kidney disease with heart failure and stage 1 through stage 4 chronic kidney disease, or unspecified chronic kidney disease; L02.416 Cutaneous abscess of left lower limb; N18.1 Chronic kidney disease, stage 1; I50.9 Heart failure, unspecified; Z78.9 Other specified health status; E11.9 Type 2 diabetes mellitus without complications; Z79.4 Long term (current) use of insulin; I48.91 Unspecified atrial fibrillation; E78.5 Hyperlipidemia, unspecified; I25.10 Atherosclerotic heart disease of native coronary artery without angina pectoris; G62.9 Polyneuropathy, unspecified; F41.9 Anxiety disorder, unspecified; I34.0 Nonrheumatic mitral (valve) insufficiency; D64.9 Anemia, unspecified; Z79.01 Long term (current) use of anticoagulants; Z79.899 Other long term (current) drug therapy; Z86.718 Personal history of other venous thrombosis and embolism
CPT/HCPCS: 36415; 80048; 82947; 85025; J2543; J2704; A9270-GY